=== PATIENT | female | born 1970 ===

== ENCOUNTER 2020-10-24 09:18 | Outpatient (REF) | payer OTHER, SELFPAY ==
[2020-10-24 10:25] LABS: Basophils Percent Auto 0.2 % (0-2); Eosinophils Absolute Auto 0.1 X10*3/uL (0.0-0.4); Eosinophils Percent Auto 1.4 % (0-4); Hematocrit 39.1 % (37-47); Hemoglobin 13.4 g/dl (12.0-16.0); Imm Gran Abs Auto 0.04 X10*3/uL (0.00-0.03); Imm Gran Pct Auto 0.5 % (0.0-0.4); Lymphocytes Absolute Auto 2.1 X10*3/uL (1.2-4.9); Lymphocytes Percent Auto 25.3 % (20-40); MANUAL DIFF FLAG SCAN; Mean Corpuscular HGB Conc 34.3 g/dl (31.0-35.0); Mean Corpuscular Volume 105.1 fL (80-98); Mean Platelet Volume 12.7 fL (9.4-12.3); Monocytes Absolute Auto 0.5 X10*3/uL (0.1-1.2); Monocytes Percent Auto 5.7 % (2-11); Neutrophils Absolute Auto 5.4 X10*3/uL (2.0-8.3); Neutrophils Percent Auto 66.9 % (45-73); PLT CLUMP 1; Red Blood Count 3.72 X10*6/uL (4.20-5.50); Red Cell Distribution Width 12.4 % (11.0-16.0); SCAN SMEAR FLAG 1
[2020-10-24 10:32] LABS: Cholesterol 136 mg/dL; Estimated Average Glucose 108 mg/dL; HDL Cholesterol 30 mg/dL; Hemoglobin A1c % 5.4 %; LDL Cholesterol Calculated 93 mg/dl; Triglycerides 67 mg/dL
[2020-10-24 10:34] LABS: Anion Gap 13 (12-20); Blood Urea Nitrogen 8 mg/dL (9-16); Calcium 9.3 mg/dL (8.4-10.2); Carbon Dioxide 24 mmol/L (22-29); Chloride 107 mmol/L (96-108); Estimated Glomerular Filt Rate > 60; Glucose Random 121 mg/dL (60-115); Potassium 3.9 mmol/l (3.3-5.1); Sodium 140 mmol/L (135-145)
[2020-10-24 10:48] LABS: White Blood Count 8.1 X10*3/uL (4.8-10.8)
[2020-10-24 10:49] LABS: Platelet Count 153 X10*3/uL (160-400); SLIDE REVIEW VERIFIED
[2020-10-24 11:09] LABS: Erythrocyte Sedimentation Rate 31 MM/HR (0-20)
== END 2020-10-24 09:19 | disposition home or self-care (01) ==
LOC: HO.LAB 09:18
PROVIDERS: Nurse Practitioner Family; PCP Physician Assistant; Visit Provider Internal Medicine
DX: Z00.00 Encounter for general adult medical examination without abnormal findings (principal); R51.9 Headache, unspecified; I10 Essential (primary) hypertension; M54.5 Low back pain
CPT/HCPCS: 36415; 80048; 80061; 83036; 85025; 85652

== ENCOUNTER 2020-11-01 10:48 | Outpatient (REF) | payer OTHER, SELFPAY ==
--- NOTE | 2020-11-01 10:50 | US_ITS ---
EXAMINATION: US ABDOMEN COMPLETE CLINICAL INFORMATION: Unspecified abdominal pain. COMPARISON: CT abdomen 05/30/2008. TECHNIQUE: Real-time imaging of the abdominal viscera. FINDINGS: PANCREAS: Normal. ABDOMINAL AORTA: The proximal, mid, and distal segments are normal in caliber. INFERIOR VENA CAVA: Visualized portions are normal. LIVER: There are small granulomas seen in left hepatic lobe. The liver is normal in size. The liver contour is normal. Parenchymal echogenicity is normal. No focal hepatic lesion. There is no intrahepatic biliary duct dilatation seen. GALLBLADDER: The gallbladder is physiologically distended. There is echogenic debris with multiple echogenic stones seen in the gallbladder. No evidence of gallbladder wall thickening or pericholecystic fluid. COMMON BILE DUCT: Normal in caliber measuring 0.7 cm in diameter. RIGHT KIDNEY: Normal. No hydronephrosis. No renal calculi or focal parenchymal lesions. The kidney measures 10.3 cm in maximum dimension. LEFT KIDNEY: Normal. No hydronephrosis. No renal calculi or focal parenchymal lesions. The kidney measures 11.8 cm in maximum dimension. SPLEEN: Normal. The spleen measures 11.2 cm in maximum dimension. FREE FLUID: None. US/US abdomen complete IMPRESSION: Echogenic debris with echogenic stones seen in gallbladder. Gallbladder wall thickening is 0.3 cm. A few echogenic granulomas in the left hepatic lobe. The liver is otherwise unremarkable. Few granulomatous calcifications are seen in the liver, spleen and pancreas on the previous CT abdomen exam 05/30/2008. Rest of the abdominal ultrasound is unremarkable.
== END 2020-11-01 10:49 | disposition home or self-care (01) ==
LOC: HO.HMGCX 10:48
PROVIDERS: PCP Physician Assistant; Visit Provider Internal Medicine
DX: R10.9 Unspecified abdominal pain (principal)
CPT/HCPCS: 76700

== ENCOUNTER → 2020-11-30 11:35 | Outpatient (BNVA) | payer OTHER, SELFPAY | PROVIDERS: PCP Physician Assistant; Visit Provider Surgery | DX: K80.64 Calculus of gallbladder and bile duct with chronic cholecystitis without obstruction (principal) | CPT/HCPCS: 99202 ==

== ENCOUNTER 2020-12-13 06:04 | Day surgery (SDC) | payer OTHER, SELFPAY ==
[2020-12-05 19:27] VITALS: BMI 28.5
--- NOTE | 2020-12-12 09:01 | HO.ANESPROP2 ---
Documented by User: Soco Ramos 12/12/20 09:08 HPI - Anesthesia Eval Consult details Narrative: 50yo F for Cholecystectomy Laparoscopic PMFSH Active Problems Active Problems: All Active Problems (Updated 12/05/20 @ 19:29 by Keerthi Ellis RN) Abdominal pain (Acute) Cholecystitis (Acute) Biliary colic (Acute) Gallstone (Acute) HTN (hypertension) (Acute) Chronic cholecystitis due to cholelithiasis with choledocholithiasis (Acute) Lower back pain (Acute) High blood pressure (Acute) Past Medical History Medical History Gallstones High blood pressure History of palpitations Lower back pain Numbness in left leg Sciatica Family History Family History Father Stroke Hypertension Mother Hypertension Sister Breast cancer Family/Other Alcoholism Surgical History Surgical History No pertinent past surgical history Social History Social History Smoking Status: Former smoker Smoking Quit Date: 2017 Second Hand Smoke Exposure: No Use of substances other than those prescribed or required for medical reasons: No Advance Directives: No Advance Directives Information Provided: No Advance Directives on File: No Meds Allergies Allergy/AdvReac Type Severity Reaction Status Date / Time No Known Allergies Allergy Verified 12/05/20 19:26 Home Medications Medication Instructions Recorded Confirmed Last Taken Type ibuprofen 800 mg tablet 800 mg PO TID PRN 08/10/20 12/05/20 Unknown History medroxyprogesterone 1 ml IM [id number] 09/18/20 12/05/20 Unknown History Exam Exam Date and Time: December 12, 2020 0901 Height,Weight and Vital Signs: Height 5 ft 4 in Weight 75.296 kg Pertinent Lab Results Pertinent Lab Results: Laboratory Tests 10/24/20 10/24/20 09:35 09:35 WBC 8.1 Hgb 13.4 Hct 39.1 Plt Count 153 L Sodium 140 Potassium 3.9 Chloride 107 Carbon Dioxide 24 BUN 8 L Creatinine 0.79 Narrative Narrative: EKG 05/2020 NSR @ 85 30 Day CHRIS 08/2020 CONCLUSION: 1. Cardiac event monitor unremarkable, baseline normal sinus rhythm with no significant arrhythmias. 2. No patient reported symptoms. Assessment and Plan Assessment Anesthesia Assessment: Chart Reviewed Documented by User: Bijan Cruz 12/13/20 07:19 PMF Past Medical History Medical History Gallstones High blood pressure History of palpitations Lower back pain Numbness in left leg Sciatica Family History Family History Father Stroke Hypertension Mother Hypertension Sister Breast cancer Family/Other Alcoholism Family history of problems with anesthesia: No Surgical History Surgical History No pertinent past surgical history History of Problems with Anesthesia: No Social History Social History Smoking Status: Former smoker Smoking Quit Date: 2017 Second Hand Smoke Exposure: No Use of substances other than those prescribed or required for medical reasons: No Advance Directives: No Advance Directives Information Provided: No Advance Directives on File: No Meds Allergies Allergy/AdvReac Type Severity Reaction Status Date / Time No Known Allergies Allergy Verified 12/05/20 19:26 Home Medications Medication Instructions Recorded Confirmed Last Taken Type ibuprofen 800 mg tablet 800 mg PO TID PRN 08/10/20 12/05/20 Unknown History medroxyprogesterone 1 ml IM [id number] 09/18/20 12/05/20 Unknown History Exam Airway Mallampati Class: I TM Dist: >3cm Neck ROM: Full Heart: ok Lungs: ok Assessment and Plan Assessment Anesthesia Assessment: Anesthesia Plan Discussed and Chart Reviewed Final Anesthetic Review NPO: Yes ASA Class: II Final Preanesthetic Review: No Changes in Pt Med Stat, Meds/Allgs Chart Reviewed, Consent Obtained/Reviewed and Anes Risks/Benef Reviewed Patient Risk: Intermediate Procedure Risk: Intermediate Anesthetic Plan Anesthetic Plan: GA and Agree w/ Assess. and Plan Disposition: Standard PACU
[2020-12-13] VITALS (13 sets, daily range): BP systolic 119–147; BP diastolic 71–83; PULSE 71–88; RESP 16; TEMP 36.1–36.6; O2SAT 96–100
[2020-12-13] MEDS: Acetaminophen 325 MG TABLET 650 MG PO (06:32)
[2020-12-13] MEDS: Lactated Ringers 1,000 ML 100 ML IVCONT (06:47)
--- NOTE | 2020-12-13 07:19 | MHC.SHP ---
Pre-Procedural Eval Section A The patient is an INPATIENT: No Changes since office visit: Yes Patient answered all questions; No Cold of Flu in the past 2 weeks, No New Medical Problems and No Changes in Medication The History & Physical has been completed within 30 days and I have reviewed it.: Yes Section B Chief Complaint: Chronic cholecystitis, Other cholelithiasis w/o ob Allergies: Allergies Allergy/AdvReac Type Severity Reaction Status Date / Time No Known Allergies Allergy Verified 12/05/20 19:26 Plan Diagnosis/Plan: Unchanged I have reviewed the history and physical and performed a pertinent physical examination on my patient. No changes have occurred unless specified.
--- NOTE | 2020-12-13 08:48 | P.OP_ITS ---
Operative Note Operative Note Date of Service: 12/13/20 Narrative: Preoperative diagnosis: Chronic cholecystitis, cholelithiasis Postoperative diagnosis: Same Procedure: Laparoscopic cholecystectomy Surgeon: Javi Canseco MD Museum Tour Guide: SILVIO West Anesthesia: General endotracheal Indications for procedure:50 year old male patient presenting with complaints of pain in the right upper quadrant, found to have gallstones in the gallbladder. Operative findings: Chronic changes in the gallbladder consistent with chronic cholecystitis Specimen: Gallbladder Estimated blood loss: 10 ml Complications: none Procedure details: Patient was brought to the OR and placed in a supine position. After administering general anesthesia the patient's abdomen was prepped with ChloraPrep and draped in a sterile fashion. Local anesthesia consisting of 0.75% Sensorcaine with epinephrine was infiltrated in a periumbilical region. A 5 mm incision was made above the umbilicus in a transverse fashion. The Veress needle was then inserted while elevating abdominal cavity with towel clips. After positive drop test the abdomen was insufflated to a pressure of 15 mm of mercury. The Veress needle was then removed and a 5 mm trocar inserted. The camera was inserted in the abdomen explored. A 12 mm trocar was then placed in the epigastrium and 2 5 mm trocars placed in the right upper quadrant. The patient was placed in reverse Trendelenburg positioning and rotated to the left. The gallbladder was grasped with the fundus and retracted cephalad.. The infundibulum Was then grasped and retracted away from the liver bed. The Dolphin dissected was then used to dissect the peritoneum off the infundibulum to reveal the junction with the cystic duct. Cystic artery was noted slightly medial and posterior to the cystic duct. After obtaining a critical view the cystic duct was doubly clipped and divided. The cystic artery was then doubly clipped and divided. The gallbladder was then dissected off the liver bed using electrocautery with an L hook. Hemostasis was assured all times using the electrocautery. When the gallbladder is completely dissected off the liver bed was placed in an Endo- Catch bag and brought out through the epigastric incision. The gallbladder was sent to pathology for further examination. The abdomen was then re-examined. The liver bed was irrigated and suctioned dry. No bleeding or bile leak could be identified. CO2 was then evacuated and all trocars removed. Fascia was closed at the epigastric incision using a [id number] 0 Polysorb suture. Skin was closed in all incisions using a subcuticular 4 0 Polysorb suture. Sterile dressings consisting of Steri-Strips, 2 x 2 gauze, and Tegaderm were then applied. The patient tolerated the procedure well. Sponge instrument and needle counts reported as correct. The patient was transferred to PACU in stable condition.
[2020-12-13] MEDS: ondansetron HCL 4 MG/2 ML VIAL IVPUSH (09:17)
[2020-12-13] MEDS: Ketorolac Tromethamine 15 MG/ML VIAL IVPUSH (09:51)
[2020-12-13] MEDS: oxyCODONE HCl Immed Release 5 MG TABLET PO (11:33)
== END 2020-12-13 12:41 | disposition home or self-care (01) ==
PROVIDERS: PCP Physician Assistant; Visit Provider Surgery
PROC: 0FT44ZZ Resection of Gallbladder, Percutaneous Endoscopic Approach (ICD-10-PCS; CPT 47562; principal; 2020-12-13 07:30)
DX: K80.10 Calculus of gallbladder with chronic cholecystitis without obstruction (principal); I10 Essential (primary) hypertension; Z79.899 Other long term (current) drug therapy; Z87.891 Personal history of nicotine dependence
CPT/HCPCS: 47562; 88304; J1100; J1885; J2250; J2405; J3010

== ENCOUNTER → 2020-12-21 09:37 | Outpatient (BNVA) | payer OTHER, SELFPAY | PROVIDERS: PCP Physician Assistant; Visit Provider Surgery | DX: K80.64 Calculus of gallbladder and bile duct with chronic cholecystitis without obstruction (principal) | CPT/HCPCS: 99212 ==

== ENCOUNTER 2021-01-21 09:43 | Outpatient (REF) | payer OTHER, SELFPAY ==
--- NOTE | ~2021-01-21 | MM_ITS ---
EXAMINATION: MM SCREENING DIGITAL BREAST TOMOSYNTHESIS, BILATERAL CLINICAL INFORMATION: Screening. Asymptomatic. The lifetime risk of breast cancer based on the Tyrer-Cuzick Model is 17.7%. COMPARISON: Mammography: January 14, 2020 and studies dating back to December 16, 2011 TECHNIQUE: Digital breast tomosynthesis is performed in both the craniocaudal and mediolateral oblique views along with computer-aided detection (CAD). Synthesized 2D images are generated from the tomosynthesis. FINDINGS: There are scattered areas of fibroglandular density (ACR BI-RADS breast composition Category b). There are no significant masses, abnormal calcifications, or other abnormalities. MM/MM tomosynthesis screening BI IMPRESSION: There are no significant changes from prior study. ASSESSMENT: BI-RADS 1: Negative RECOMMENDATION: Routine annual mammography screening. This patient's information was entered into a reminder system with a target due date for their next mammogram.
== END 2021-01-21 09:44 | disposition home or self-care (01) ==
LOC: HO.MAMMO 09:43
PROVIDERS: PCP Hospitalist; Visit Provider Hospitalist
DX: Z12.31 Encounter for screening mammogram for malignant neoplasm of breast (principal)
CPT/HCPCS: 77063; 77067

== ENCOUNTER 2021-06-03 12:50 | Outpatient (REF) | payer OTHER, SELFPAY ==
[2021-06-03 13:34] LABS: Glucose Urine UA NEG (NEG); Leukocyte Esterase Urine NEG (NEG); Nitrite Urine NEG (NEG); Specific Gravity - Urine 1.015 (1.005-1.025); Urine Blood NEG (NEG); Urine Ketones NEG (NEG); Urine Protein NEG (NEG-TRACE)
[2021-06-03 13:41] LABS: Appearance Urine CLEAR; Color Urine YELLOW
[2021-06-04 19:36] LABS: Follicle Stimulating Hormone 64.2 mIU/mL; Lutenizing Hormone 32.6 mIU/mL
[2021-06-09 21:17] LABS: Estrogen 68.3 pg/mL
[2021-06-13 21:11] LABS: Estradiol, Ultrasensitive 4 pg/mL
== END 2021-06-03 12:51 | disposition home or self-care (01) ==
LOC: HO.LAB 12:50
PROVIDERS: PCP Physician Assistant; Visit Provider Physician Assistant
DX: N95.1 Menopausal and female climacteric states (principal); R30.0 Dysuria
CPT/HCPCS: 36415; 81003; 82670; 82672; 82681; 83001; 83002

== ENCOUNTER → 2021-11-20 09:43 | Outpatient (BNVA) | payer OTHER, SELFPAY | PROVIDERS: PCP Physician Assistant; Referring Provider Physician Assistant; Visit Provider Nurse Practitioner Family | DX: Z12.11 Encounter for screening for malignant neoplasm of colon (principal) | CPT/HCPCS: 99212 ==

== ENCOUNTER 2022-04-02 11:13 | Outpatient (REF) | payer OTHER, SELFPAY ==
--- NOTE | ~2022-04-02 | MM_ITS ---
EXAMINATION: MM SCREENING DIGITAL BREAST TOMOSYNTHESIS, BILATERAL CLINICAL INFORMATION: Screening. Asymptomatic. The lifetime risk of breast cancer based on the Tyrer-Cuzick Model is 12%. COMPARISON: Mammography: January 21, 2021 and studies dating back to December 16, 2011 TECHNIQUE: Digital breast tomosynthesis is performed in both the craniocaudal and mediolateral oblique views along with computer-aided detection (CAD). Synthesized 2D images are generated from the tomosynthesis. FINDINGS: The breasts are almost entirely fatty (ACR BI-RADS breast composition Category a). There are no significant masses, abnormal calcifications, or other abnormalities. MM/MM tomosynthesis screening BI IMPRESSION: There are no significant changes from prior study. ASSESSMENT: BI-RADS 1: Negative RECOMMENDATION: Routine annual mammography screening. This patient's information was entered into a reminder system with a target due date for their next mammogram.
== END 2022-04-02 11:14 | disposition home or self-care (01) ==
LOC: HO.MAMMO 11:13
PROVIDERS: Visit Provider Physician Assistant
DX: Z12.31 Encounter for screening mammogram for malignant neoplasm of breast (principal)
CPT/HCPCS: 77063; 77067

== ENCOUNTER 2022-06-24 09:53 | Outpatient (REF) | payer OTHER, SELFPAY ==
--- NOTE | ~2022-06-24 | XR_ITS ---
EXAMINATION: XR KNEE, RIGHT XR KNEE, LEFT CLINICAL INFORMATION: Bilateral knee pain. COMPARISON: 03/14/2019 TECHNIQUE: 3 views of each knee. FINDINGS: LEFT KNEE: There is no evidence of acute fracture or dislocation of the left knee. No left knee joint effusion. Joint spaces are maintained. No destructive bony lesions identified. RIGHT KNEE: There is no evidence of acute fracture or dislocation of the right knee. Right knee joint spaces are maintained. No right knee effusion. XR/XR knee RT 3V IMPRESSION: No significant bony abnormality of the right or left knee.
--- NOTE | ~2022-06-24 | XR_ITS ---
EXAMINATION: XR CERVICAL SPINE CLINICAL INFORMATION: Cervicalgia. COMPARISON: None TECHNIQUE: 4 views of the cervical spine. FINDINGS: No abnormal prevertebral soft tissue swelling is seen. There is loss of the normal cervical spine lordosis. Disc spaces are maintained. No acute fracture is identified. There is mild spurring anteriorly of the L4 and L5 vertebral bodies. No destructive bony lesions identified. The head is tilted to the right. XR/XR cervical spine 3V IMPRESSION: Mild cervical spondylosis without fracture.
--- NOTE | ~2022-06-24 | XR_ITS ---
EXAMINATION: XR LUMBOSACRAL SPINE CLINICAL INFORMATION: Intervertebral disc disorder with radiculopathy. COMPARISON: 03/14/2019 TECHNIQUE: Three views of the lumbosacral spine. FINDINGS: There are 5 nonrib-bearing lumbar vertebrae. There is minimal scoliosis of the lumbar spine convex right superiorly and convex left inferiorly. No acute fracture, spondylolisthesis, or spondylolysis is appreciated. Multilevel degenerative spurring is present. There is some disc space narrowing seen T11 through L1. There is some increased density seen involving the L5-S1 facet joints bilaterally. No evidence of fusion or widening of the sacroiliac joints. XR/XR lumbar spine 2-3V IMPRESSION: Multilevel spondylosis from lower thoracic spine to sacrum without evidence of acute fracture, spondylolisthesis, or spondylolysis.
--- NOTE | ~2022-06-24 | XR_ITS ---
EXAMINATION: XR KNEE, RIGHT XR KNEE, LEFT CLINICAL INFORMATION: Bilateral knee pain. COMPARISON: 03/14/2019 TECHNIQUE: 3 views of each knee. FINDINGS: LEFT KNEE: There is no evidence of acute fracture or dislocation of the left knee. No left knee joint effusion. Joint spaces are maintained. No destructive bony lesions identified. RIGHT KNEE: There is no evidence of acute fracture or dislocation of the right knee. Right knee joint spaces are maintained. No right knee effusion. XR/XR knee LT 3V IMPRESSION: No significant bony abnormality of the right or left knee.
[2022-06-24 10:43] LABS: Hematocrit 40.8 % (37.0-47.0); Hemoglobin 14.4 g/dl (12.0-16.0); Mean Corpuscular HGB Conc 35.3 g/dl (31.0-35.0); Mean Corpuscular Hemoglobin 34.8 pg (27.0-33.0); Mean Corpuscular Volume 98.6 fL (80.0-98.0); Mean Platelet Volume 11.9 fL (9.4-12.3); Platelet Count 167 X10*3/uL (160-400); Red Blood Count 4.14 X10*6/uL (4.20-5.50); Red Cell Distribution Width 12.2 % (11.0-16.0); White Blood Count 7.3 X10*3/uL (4.8-10.8)
[2022-06-24 11:08] LABS: Creatinine Urine 95.04 mg/dL; Microalbum/Creatinine Ratio Ur 5.2 ug/mg cr
[2022-06-24 11:17] LABS: Alanine Aminotransferase 14 U/L (0-31); Albumin Level 4.6 g/dL (3.5-5.0); Alkaline Phosphatase 118 U/L (39-117); Anion Gap 16 (12-20); Aspartate Amino Transferase 15 U/L (5-31); Bilirubin Total 2.5 mg/dL (0.0-1.0); Blood Urea Nitrogen 10 mg/dL (9-16); Calcium 9.6 mg/dL (8.4-10.2); Carbon Dioxide 27 mmol/L (22-29); Chloride 103 mmol/L (96-108); Cholesterol 165 mg/dL; Estimated Glomerular Filt Rate > 60; Glucose Fasting 100 mg/dL (60-99); HDL Cholesterol 44 mg/dL; LDL Cholesterol Calculated 104 mg/dl; Rheumatoid Factor < 15.0 IU/mL (<15.0); Sodium 142 mmol/L (135-145); Total Protein 7.7 g/dL (6.5-8.0); Triglycerides 86 mg/dL
[2022-06-24 11:26] LABS: Erythrocyte Sedimentation Rate 16 MM/HR (0-20)
[2022-06-24 11:29] LABS: TSH reflex Free T4 3.63 uIU/mL (0.32-4.0)
[2022-06-26 22:47] LABS: Anti DNA DS Antibody <1 IU/mL
[2022-06-29 11:32] LABS: Anti Nuclear Antibody Screen NEGATIVE (NEGATIVE)
== END 2022-06-24 09:54 | disposition home or self-care (01) ==
LOC: HO.XRAY 09:53
PROVIDERS: PCP Physician Assistant; Visit Provider Physician Assistant
DX: I10 Essential (primary) hypertension (principal); M51.16 Intervertebral disc disorders with radiculopathy, lumbar region; M54.2 Cervicalgia; G89.29 Other chronic pain; M25.562 Pain in left knee; M25.561 Pain in right knee
CPT/HCPCS: 36415; 72040; 72100; 73562; 80053; 80061; 82043; 84443; 85027; 85652; 86038; 86039; 86225; 86431

== ENCOUNTER 2022-07-07 09:02 | Outpatient (REF) | payer OTHER, SELFPAY ==
--- NOTE | ~2022-07-07 | US_ITS ---
EXAMINATION: US ABDOMEN LIMITED CLINICAL INFORMATION: Unspecified jaundice. COMPARISON: Ultrasound abdomen complete 11/01/2020. TECHNIQUE: Real-time imaging of the right upper quadrant abdominal viscera. FINDINGS: PANCREAS: Normal. LIVER: There are known granulomas seen in right hepatic lobe. They measure 0.7 x 0.6 x 0.9 cm and 0.7 x 0.4 x 0.6 cm. The liver is normal in size. The liver contour is normal. Parenchymal echogenicity is normal. No focal hepatic lesion. There is no intrahepatic biliary duct dilatation seen. GALLBLADDER: Surgically absent. COMMON BILE DUCT: Normal in caliber measuring 0.6 cm in diameter. RIGHT KIDNEY: Normal. No hydronephrosis. No renal calculi or focal parenchymal lesions. The kidney measures 10.6 cm in maximum dimension. FREE FLUID: None. US/US abdomen limited IMPRESSION: Known granulomas in the liver measuring 0.7 x 0.6 x 0.9 cm and 0.7 x 0.4 x 0.6 cm.
== END 2022-07-07 09:03 | disposition home or self-care (01) ==
LOC: HO.US 09:02
PROVIDERS: Visit Provider Physician Assistant
DX: R17 Unspecified jaundice (principal)
CPT/HCPCS: 76705

== ENCOUNTER 2023-03-25 15:25 | Emergency (ER) | payer OTHER, SELFPAY ==
--- NOTE | ~2023-03-25 | XR_ITS ---
EXAMINATION: XR CHEST CLINICAL INFORMATION: SOB and palpitations. COMPARISON: Chest 01/02/2010 TECHNIQUE: 2 views of the chest were obtained. FINDINGS: No significant abnormality is noted involving the heart, lungs, mediastinum, bony thorax or soft tissues. XR/XR chest 2V IMPRESSION: Unremarkable chest examination.
[2023-03-25 15:28] VITALS: BP 132/82; PULSE 92; RESP 20; TEMP 36.8; O2SAT 100; BMI 26.8
--- NOTE | 2023-03-25 15:28 | ED.GENADULT ---
HPI - General Adult General Chief complaint: Chest Pain Stated complaint: Chest Pain/diff breathing Time Seen by Provider: 03/25/23 18:21 Source: patient, RN notes reviewed and old records reviewed Mode of arrival: ambulatory Limitations: no limitations History of Present Illness HPI narrative: 52-year-old female with past medical history significant for hypertension on lisinopril, hydrochlorothiazide presents for evaluation of palpitations Patient reports that while she was sitting down earlier she felt like her heart was racing She denies any exertion at the time She felt as though she could not catch her breath at the time She states that sitting down her symptoms resolved after about 30 minutes Patient reports that this happened once last week as well She also admits that she has a Holter monitor go 2 years ago but never followed up with her results She does not currently see cardiology Never had any chest pain with this and currently she has no symptoms This episode was over 6 hours prior to Related Data Previous Rx's Medication Instructions Recorded metronidazole 0.75 % topical gel 1 appl topical DAILY 15 days #45 06/10/21 grams tizanidine 2 mg tablet 2 mg PO BEDTIME 30 days #30 tabs 12/18/21 bisacodyl 5 mg tablet,delayed 10 mg PO ONCE 1 day #2 tabs 03/12/22 release (Dulcolax (bisacodyl)) gabapentin 600 mg tablet 600 mg PO BID 30 days #60 tabs 12/10/22 acetaminophen 650 mg 650 mg PO Q12H 30 days #60 tabs 02/08/23 tablet,extended release tramadol 50 mg tablet 50 mg PO BID PRN pain 7 days #14 02/10/23 tabs ibuprofen 800 mg tablet 800 mg PO TID PRN Pain 30 days #90 03/19/23 tabs lisinopril 20 1 tab PO DAILY 30 days #30 tabs 03/19/23 mg-hydrochlorothiazide 25 mg tablet Allergies Allergy/AdvReac Type Severity Reaction Status Date / Time No Known Allergies Allergy Verified 02/10/23 15:47 Review of Systems Constitutional: Constitutional: Reports as per HPI, Denies chills, Denies fatigue, Denies fever(s) and Denies headache(s) ENT: Denies headache(s) Cardiovascular: Cardiovascular: Denies chest pain, Reports rapid heart rate, Reports palpitations and Reports dyspnea Respiratory: Respiratory: Denies cough and Reports dyspnea Gastrointestinal: Gastrointestinal: Denies abdominal pain, Denies constipation and Denies vomiting Genitourinary: Genitourinary: Denies dysuria Neurologic: Denies headache(s) and Denies focal weakness Endocrine: Endocrine: Denies fatigue and Reports palpitations PMFSH Past Medical History Medical History Gallstones High blood pressure History of palpitations Lower back pain Numbness in left leg Sciatica Surgical History Hx of cholecystectomy No pertinent past surgical history Family History Family History Father Stroke Hypertension Mother Hypertension Sister Breast cancer, Onset Age: 45 Family/Other Alcoholism Social History Social History (Updated 02/10/23 @ 15:54 by Se Miguel PA-C) Housing: Apartment Are you a primary caregivers non medical to a significant other at home: No Do you presently have visiting nurse or other home services: No Alcohol intake: current Alcohol intake frequency: a few times a month Patient Tobacco Use Status: Never used Tobacco e-Cigarette/Vaping Use: Never Used Second Hand Smoke Exposure: No Advance Directives: No Advance Directives Information Provided: No service: No Current occupational status: unemployed Cognitive needs: No Hearing needs: No Vision needs: No Physical Exam ED Vital Signs: Vital Signs - 24 hr 03/25/23 15:28 Temperature 98.2 F Pulse Rate 92 Respiratory Rate 20 Blood Pressure 132/82 Pulse Oximetry 100 Oxygen Delivery Method Room Air BMI result Body Mass Index 26.8 Const General: healthy appearing, comfortable, no acute distress, alert and awake Nutritional Appearance: well nourished Orientation/consciousness: patient oriented x3 HENMT Head: Yes normocephalic and Yes atraumatic Eyes Eyelids: Yes eyelids normal Conjunctivae: conjunctivae normal Sclerae: sclerae normal Corneas: corneas normal Pupils: Equal, round and reactive pupils present EOM: EOMs intact bilaterally Neck Neck: Yes full ROM Resp Effort & Inspection: normal respiratory effort, able to speak in complete sentences, no audible wheezes and not labored Auscultation: clear to auscultation bilaterally Cardio Rate: regular rate Rhythm: regular rhythm Skin General skin exam: no rashes or lesions noted and elasticity normal Neuro General: patient oriented x3 Cranial nerves: Yes Equal, round and reactive pupils present and Yes Bilaterally intact EOM present Cognition (Neuro): normal cognition Extrem Other: Moving all extremities well without any obvious deformities Course Course Course Narrative: This is an RME: Additional HPI, ROS, PE not included below will be deferred to primary provider. This is a [id number]-female, with a past medical history of hypertension, with a complaint of episode of heart racing and shortness of breath which started today. Pt states that she was in her house and she suddenly developed the symptoms. Denies any chest pain or pressure but felt as though her heart was rapidly beating. She sat down and her symptoms resolved after 30 minutes. History of similar symptoms in the past however has never been worked up for this. Vital signs within limits Plan: EKG, chest xray, labs ordered. Medical Decision Making Medical Decision Making [facility] Narrative: 52-year-old female presents for evaluation of palpitations and shortness of breath. This resolved several hours prior to arrival. It is unclear if this was anxiety versus a true arrhythmia. The patient has no history of arrhythmias. Her EKG is normal sinus rhythm. Vital signs are currently stable and she is asymptomatic. Her lab work is reassuring, troponin negative, electrolytes are within normal limits. We will discharge the patient to follow up with Cardiology as she would likely benefit from a Holter monitor to capture this Differential Diagnosis Palpitations Anxiety Arrhythmia AFib SVT Lab Data [facility] Lab Attestation statement: I reviewed the patient's lab results. 03/25/23 15:45 03/25/23 15:45 Labs: Lab Results 03/25/23 03/25/23 03/25/23 Range/Units 15:45 15:45 15:45 WBC 10.7 (4.8-10.8) X10*3/uL RBC 3.75 L (4.20-5.50) X10*6/uL Hgb 12.8 (12.0-16.0) g/dl Hct 36.6 L (37.0-47.0) % MCV 97.6 (80.0-98.0) fL MCH 34.1 H (27.0-33.0) pg MCHC 35.0 (31.0-35.0) g/dl RDW 11.7 (11.0-16.0) % Plt Count 178 (160-400) X10*3/uL MPV 12.7 H (9.4-12.3) fL Immature Gran % (Auto) 0.2 (0.0-0.4) % Neut % (Auto) 68.1 (45-73) % Lymph % (Auto) 24.8 (20-40) % [place] % (Auto) 5.7 (2-11) % Eos % (Auto) 0.9 (0-4) % Baso % (Auto) 0.3 (0-2) % Lymph # (Auto) 2.6 (1.2-4.9) X10*3/uL [place] # (Auto) 0.6 (0.1-1.2) X10*3/uL Eos # (Auto) 0.1 (0.0-0.4) X10*3/uL Baso # (Auto) 0.0 (0.0-0.2) X10*3/uL Abs Immat Gran (auto) 0.02 (0.00-0.03) X10*3/uL Absolute Neuts (auto) 7.3 (2.0-8.3) x10*3/uL Absolute Nucleated RBC 0.000 (0.0-0.012) X10*3/uL Nucleated RBC % (auto) 0.0 (0.0-0.2) /100WBC Smear Tech's Comments VERIFIED Sodium 142 (135-145) mmol/L Potassium 3.7 (3.3-5.1) mmol/L Chloride 108 (96-108) mmol/L Carbon Dioxide 27 (22-29) mmol/L Anion Gap 11 L (12-20) BUN 16 (9-16) mg/dL Creatinine 0.87 (0.5-1.4) mg/dL Estim Creat Clear Calc 72.9 Estimated GFR > 60 Random Glucose 129 H (60-115) mg/dL Calcium 9.4 (8.4-10.2) mg/dL Magnesium 2.1 (1.6-2.6) mg/dL Total Bilirubin 1.7 H (0.0-1.0) mg/dL Direct Bilirubin 0.4 (0.0-0.5) mg/dL AST 15 (5-31) U/L ALT 12 (0-31) U/L Alkaline Phosphatase 106 (39-117) U/L Troponin I High Sens < 2.7 (<3.5-17.0) ng/L Total Protein 6.7 (6.5-8.0) g/dL Albumin 4.0 (3.5-5.0) g/dL Lipase 36 (8-78) U/L Independent Interpretation I performed an independent interpretation of an: EKG (Sinus rhythm with a rate of 89 beats per minute. No ischemia or ectopy) Discharge Plan Discharge Clinical Impression: Palpitations Patient Disposition: Home, Self-Care Instructions: Heart Palpitations (ED) Additional Instructions: It is unclear if you had a true arrhythmia or anxiety earlier as your symptoms resolved prior to arrival Your blood work, EKG were within normal limits Follow-up with cardiology as you likely need a Holter monitor to try to capture this episode Follow-up with your primary doctor Prescriptions: No Action tizanidine 2 mg tablet 2 mg PO BEDTIME 30 Days Qty: 30 3RF bisacodyl [Dulcolax (bisacodyl)] 5 mg tablet,delayed release (DR/EC) 10 mg PO ONCE 1 Days Qty: 2 0RF Rx Instructions: take 2 tabs at noon the day before your colonoscopy gabapentin 600 mg tablet 600 mg PO BID 30 Days Qty: 60 3RF acetaminophen 650 mg tablet extended release 650 mg PO Q12H 30 Days Qty: 60 2RF lisinopril-hydrochlorothiazide 20-25 mg tablet 1 tab PO DAILY 30 Days Qty: 30 2RF ibuprofen 800 mg tablet 800 mg PO TID PRN (Reason: Pain) 30 Days Qty: 90 1RF metronidazole 0.75 % gel 1 appl topical DAILY 15 Days Qty: 45 1RF tramadol 50 mg tablet 50 mg PO BID PRN (Reason: pain) 7 Days Qty: 14 0RF Referrals: Momo Navarro MD [Physician] - (? holter monitor for palpitations)
--- NOTE | 2023-03-25 15:31 | ECG_ITS ---
Test Reason : PALPITATIONS Blood Pressure : / mmHG Vent. Rate : 089 BPM Atrial Rate : 089 BPM P-R Int : 172 ms QRS Dur : 094 ms QT Int : 370 ms P-R-T Axes : 052 -08 055 degrees QTc Int : 450 ms Normal sinus rhythm Low voltage QRS Borderline ECG When compared with ECG of 02-JAN-2010 15:01, No significant change was found Referred By: Swapna Torres Electronically Signed By:TEGAN LANGSTON MD
[2023-03-25 15:58] LABS: Basophils Percent Auto 0.3 % (0-2); Red Cell Distribution Width 11.7 % (11.0-16.0); SCAN SMEAR FLAG 1
[2023-03-25 16:00] LABS: Eosinophils Absolute Auto 0.1 X10*3/uL (0.0-0.4); Eosinophils Percent Auto 0.9 % (0-4); Hematocrit 36.6 % (37.0-47.0); Hemoglobin 12.8 g/dl (12.0-16.0); Imm Gran Abs Auto 0.02 X10*3/uL (0.00-0.03); Imm Gran Pct Auto 0.2 % (0.0-0.4); Lymphocytes Absolute Auto 2.6 X10*3/uL (1.2-4.9); Lymphocytes Percent Auto 24.8 % (20-40); MANUAL DIFF FLAG SCAN; Mean Corpuscular Hemoglobin 34.1 pg (27.0-33.0); Mean Corpuscular Volume 97.6 fL (80.0-98.0); Mean Platelet Volume 12.7 fL (9.4-12.3); Monocytes Absolute Auto 0.6 X10*3/uL (0.1-1.2); Monocytes Percent Auto 5.7 % (2-11); Neutrophils Absolute Auto 7.3 x10*3/uL (2.0-8.3); Neutrophils Percent Auto 68.1 % (45-73); Platelet Count 178 X10*3/uL (160-400); Red Blood Count 3.75 X10*6/uL (4.20-5.50); White Blood Count 10.7 X10*3/uL (4.8-10.8)
[2023-03-25 16:08] LABS: PLT ABN DIST 1
[2023-03-25 16:09] LABS: Alanine Aminotransferase 12 U/L (0-31); Alkaline Phosphatase 106 U/L (39-117); Anion Gap 11 (12-20); Aspartate Amino Transferase 15 U/L (5-31); Bilirubin Direct 0.4 mg/dL (0.0-0.5); Bilirubin Total 1.7 mg/dL (0.0-1.0); Blood Urea Nitrogen 16 mg/dL (9-16); Calcium 9.4 mg/dL (8.4-10.2); Carbon Dioxide 27 mmol/L (22-29); Chloride 108 mmol/L (96-108); Creatinine Clr Calc Pharmacy 72.9; Estimated Glomerular Filt Rate > 60; Glucose Random 129 mg/dL (60-115); Lipase 36 U/L (8-78); Magnesium 2.1 mg/dL (1.6-2.6); Potassium 3.7 mmol/L (3.3-5.1); Sodium 142 mmol/L (135-145); Total Protein 6.7 g/dL (6.5-8.0)
[2023-03-25 16:15] LABS: SLIDE REVIEW VERIFIED
[2023-03-25 16:17] LABS: Troponin-I High Sensitivity < 2.7 ng/L (<3.5-17.0)
[2023-03-25 18:34] VITALS: BP 141/86; PULSE 76; RESP 16; O2SAT 98
== END 2023-03-25 18:44 | disposition home or self-care (01) ==
PROVIDERS: Physician Assistant Medical; Emergency Provider Student in an Organized Health Care Education/Training Program; PCP Physician Assistant
DX: R00.2 Palpitations (principal); R06.00 Dyspnea, unspecified; I10 Essential (primary) hypertension; Z79.899 Other long term (current) drug therapy
CPT/HCPCS: 36415; 71046; 80048; 80076; 83690; 83735; 84484; 85025; 93005; 99283; 99285

== ENCOUNTER 2023-11-02 14:22 | Outpatient (AMB) | payer OTHER, SELFPAY ==
[2023-11-02 15:44] VITALS: BP 100/76; PULSE 72; RESP 17; BMI 23.3
--- NOTE | 2023-11-02 15:44 | A.OFFPC_ITS ---
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 Accompanied by: Self / Same As Patient Allergies No Known Allergies Allergy (Verified 11/02/23 16:17) Medication List - Last Reconciled 11/02/23 by Se Miguel PA-C acetaminophen ER 650 mg PO Q12H 30 days gabapentin 600 mg PO BID 30 days ibuprofen 800 mg PO TID PRN 30 days lisinopril-hydrochlorothiazide 20-25 mg 1 tab PO DAILY tramadol 50 mg PO BID PRN 7 days Tobacco use date assessed: 11/02/23 Dental Screening Dental Screen Date: 11/02/23 Did you have a dental visit in the last 12 months?: Yes Did you have a dental problem in the last 6 months where you did not have access to dental care?: No Was dental information given to patient?: Patient has dentist HPI f/u HTN HPI Details Patient is a 53-year-old female here today for follow-up visit? Patient has a past medical history significant for hypertension. ?Lumbar spine pain:? Patient continues to lumbar spine pain and has had history of sciatica down left lower extremity.? She has gotten lumbar x-rays in 2021 which did not show any osteoarthritic deformities.? She does report getting cortisone injections in her lumbar spine in the past at had helped temporarily. She denies ever having physical therapy for her lumbar spine pain.? Currently using gabapentin 800 mg T.i.d. for her pain with minimal affect. As seen mixer wet pour in the past and all rheumatology testing was essentially normal.? X-rays knees and back were normal. ?? Fibromyalgia .. Hypertension:? Blood pressure has been stable. Has lost a significant amount of weight since last office visit intentionally. Blood pressure slightly on the lower side today in office. Will reduce her dose of hydrochlorothiazide to reduce incidence of hypotension. She does not check her blood pressure at home.? Otherwise denies any chest discomfort, headaches, shortness of breath. ? PFSH Medical History Numbness in left leg Sciatica Gallstones History of palpitations Lower back pain High blood pressure Surgical History Hx of cholecystectomy No pertinent past surgical history Family History Father Stroke Hypertension Mother Hypertension Sister Breast cancer, Onset Age: 45 Family/Other Alcoholism Social History Housing: Apartment Are you a primary professional healthcare representative to a significant other at home: No Do you presently have visiting nurse or other home services: No Alcohol intake: current Alcohol intake frequency: holidays/special occasions only Patient Tobacco Use Status: Never used Tobacco e-Cigarette/Vaping Use: Never Used Second Hand Smoke Exposure: No service: No Current occupational status: unemployed Cognitive needs: No Hearing needs: No Vision needs: No Questionnaire PHQ-9 Over the last 2 weeks, how often have you been bothered by any of the following problems? 1. Little interest or pleasure in doing things: not at all 2. Feeling down, depressed, or hopeless: not at all 3. Trouble falling or staying asleep, or sleeping too much: not at all 4. Feeling tired or having little energy: not at all 5. Poor appetite or overeating: not at all 6. Feeling bad about yourself - or that you are a failure or have let yourself or your family down: not at all 7. Trouble concentrating on things, such as reading the newspaper or watching television: not at all 8. Moving or speaking so slowly that other people could have noticed. Or the opposite - being so fidgety or restless that you have been moving around a lot more than usual: not at all 9. Thoughts that you would be better off or of hurting yourself in some way: not at all Total score: 0 Depression Screening Interpretation: Negative Depression Screening Done: Yes 03094 - PHQ-9 Billing: Yes Source: Developed by Drs. Julien Pruitt, Marina Rene, Jovan Perez and colleagues, with an educational good from [employer]. Thrive Questionnaire Date Thrive assessed: 11/02/23 I am a: Patient What is your living situation today?: I have a steady place to live Within the past 12 months, did the food you bought not last and you didn't have the money to get more?: Never true Within the past 12 months, did you worry whether your food would run out before you got money to buy more?: Never true Do you have trouble paying for medicines?: No Do you have trouble getting transportation to medical appointments?: No Do you have trouble paying your heating and electricity bill?: No Do you have trouble taking care of your child, family member or friend?: No Do you have trouble with day-to-day activities such as bathing, preparing meals, shopping, managing finances, etc.?: No Are you currently unemployed and looking for a job?: No Are you interested in more education?: No Please select the resources that you would like help with: None Currently or been in a relationship where the following occur: no concerns reported AUDIT C Alcohol Use Questionnaire (AUDIT-C) 1. How often do you have a drink containing alcohol?: 2-4 times a month 2. How many drinks containing alcohol do you have on a typical day when you are drinking?: 1 or 2 3. How often do you have six or more drinks on one occasion?: Never Total Score: 2 MARIA VICTORIA-7 AMB Questionnaire MARIA VICTORIA-7 Date MARIA VICTORIA - 7 assessed: 11/02/23 Feeling nervous, anxious, or on edge: 0 = Not at all Not being able to stop or control worryin = Not at all Worrying too much about different things: 0 = Not at all Trouble relaxin = Not at all Being so restless that it is hard to sit still: 0 = Not at all Becoming easily annoyed or irritable: 0 = Not at all Feeling afraid as if something awful might happen: 0 = Not at all Total MARIA VICTORIA-7 score (0-4 normal; 5-9 mild; 10-14 moderate; 15-21 severe): 0 Source: Developed by Drs. Julien Pruitt, Marina Rene, Jovan Perez and colleagues, with an educational good from [employer]. MARIA VICTORIA-7 Assessment Billing MARIA VICTORIA-7 Assessment Tool: MARIA VICTORIA-7 Assessment 77440 Review of Systems Const Denies headache(s) Eyes Denies loss of vision ENT Denies vertigo, Denies dizziness, Denies headache(s) and Denies sore throat Card Denies chest pain, Denies leg edema and Denies lightheadedness Resp Denies cough, Denies hemoptysis and Denies wheezing GI Denies abdominal pain, Denies melena, Denies constipation, Denies diarrhea and Denies vomiting Denies urinary frequency, Denies dysuria and Denies urinary urgency Musc Details: + knee pain Reports back pain, Reports arthralgias, Denies joint swelling, Denies numbness and Denies tingling Neuro Denies Abnormal speech present, Denies behavioral changes, Denies vertigo, Denies dizziness, Denies headache(s), Denies loss of vision, Denies memory loss, Denies numbness and Denies tingling Psych Denies anxiety, Denies behavioral changes, Denies depression, Denies memory loss and Denies panic attacks [place]/Lymph Denies easy bleeding and Denies easy bruising Aller/Immun Denies wheezing Physical exam (Primary Care) Vital Signs: Last Vital Signs Pulse 72 11/02/23 15:44 Resp 17 11/02/23 15:44 BP 100/76 11/02/23 15:44 BMI result Body Mass Index 23.3 Tobacco/Smoking Status: Tobacco use Status Tobacco use date assessed 11/02/23 11/02/23 15:54 Patient Tobacco Use Status Never used Tobacco 11/02/23 15:44 e-Cigarette/Vaping Use Never Used 11/02/23 15:44 PHQ-9: PHQ-9 Score PHQ-9: Total score 0 11/02/23 16:20 Depression Screening Interpretation: Negative Thrive Assessment: Date of Thrive Assessment Date Thrive assessed 11/02/23 11/02/23 15:54 Currently or been in a relationship where the following occur: no concerns reported Const General: healthy appearing, no acute distress, alert and awake Nutritional Appearance: well nourished Orientation/consciousness: oriented to person, oriented to place and oriented to time HENMT Ears: TM's normal bilaterally General nose exam: Normal nasal mucous membranes and turbinates present Eyes Conjunctivae: conjunctivae normal Sclerae: sclerae normal Pupils: Equal, round and reactive pupils present Neck Neck: Yes no lymphadenopathy and Yes no JVD Thyroid: Thyroid normal Carotids: no bruits Resp Effort & Inspection: normal respiratory effort and not tachypneic Auscultation: no crackles, no rales, no rhonchi and no wheezes Cardio Rate: regular rate Rhythm: regular rhythm Heart sounds: no murmurs and normal S1 and S2 GI Palpation (GI): Soft to palpation, nontender, no hepatomegaly and no splenomegaly Auscultation: normal bowel sounds Skin General skin exam: no rashes or lesions noted and dry skin Neuro General: oriented to person, oriented to place and oriented to time Cranial nerves: Yes Equal, round and reactive pupils present Speech: No Abnormal speech present Gait exam (Neuro): Normal gait present Motor exam (neuro): no tremor noted Extrem Right upper extremity: full ROM Left upper extremity: full ROM Right lower extremity: full ROM; no edema Left lower extremity: full ROM; no edema Psych Mental Status: mental status grossly normal Speech and movement: Normal speech and movement present Affect: normal affect Attitude: cooperative Thought process: Normal thought process present Office Procedures Flu Questionnaire Does the patient have a severe egg allergy?: No Does the patient have severe life threatening allergies?: No Does the patient have a fever or illness today?: No Has the patient ever had Guillain-[place] Syndrome?: No Has the patient ever had any past reaction to a flu shot?: No Immunizations flu vacc [id number] 6mos up(PF) 60 mcg(15 mcgx4)/0.5 mL IM syringe Performing Provider: Se Miguel PA-C Performing Location: [facility] Administered by: DUSTIN Martinez on 11/02/23 15:59 Dose Route Admin Location Dispensed Lot Number Expiration Date NDC [employer] In[employer] 0.5 mL IM Left Deltoid 0.5 mL [id number] 04/24/24 [id number] Ygle VIS Given Date VIS Provided VIS Publication Date 11/02/23 Single Vaccine 21 Eligibility Eligibility Date Funding Source Not [facility] Eligible 11/02/23 Private Assessment and Plan Assessment & Plan (1) HTN (hypertension): Code(s): I10 - Essential (primary) hypertension Qualifiers: Hypertension type: primary hypertension Qualified Code(s): I10 - Essential (primary) hypertension Plan: Patient's blood pressure slightly low today's office. Has lost 20 lb since last office visit. She reports this weight loss was intentional. Will reduce her dose of hydrochlorothiazide. Goal blood pressures to be below 140/90 and above 100/60. (2) Lumbar disc disease with radiculopathy: Code(s): M51.16 - Intervertebral disc disorders with radiculopathy, lumbar region Plan: Patient is a chronic history lower lumbar spine pain which hinders her a bit to do her ADLs. Again as HPI patient has gotten cortisone injections in the past with minimal relief. Also continues to use ibuprofen, gabapentin, Tylenol with minimal relief. Will supply patient with short-term script for tramadol to use for pain scales of 8-10 . She is interested in establishing care with a chronic pain management for other pain reduction modalities. (3) Colon cancer screening: Code(s): Z12.11 - Encounter for screening for malignant neoplasm of colon Plan: Now willing to do colonoscopy procedure (4) Fibromyalgia: Code(s): M79.7 - Fibromyalgia Plan: Patient's signs symptoms of global lysed pain most consistent with fibromyalgia. X-rays of particular joints without evidence osteoarthritis. She reports gabapentin, ibuprofen, tramadol have been affective. She is interested in seeing pain management to discuss pain reduction modalities. Orders: Orders Influenza [id number] Immunization 11/02/23 Z23 - Encounter for immunization Referrals Gastroenterology Referral Z12.11 - Encounter for screening for malignant neoplasm of colon Pain Management Referral M51.16 - Intervertebral disc disorders with radiculopathy, lumbar region Medications: New lisinopril-hydrochlorothiazide 20-12.5 mg 1 tab PO DAILY 90 days 90 tabs 1RF I10 - Essential (primary) hypertension Refilled tramadol 50 mg PO BID 7 days PRN 14 tabs 0RF pain M51.16 - Intervertebral disc disorders with radiculopathy, lumbar region Discontinued lisinopril-hydrochlorothiazide 20-25 mg Discontinued Reason: Doctor's Order 1 tab PO DAILY 90 tabs 1RF I10 - Essential (primary) hypertension Coding Level of Care Code Est Pt Level 4 (56952) Diagnoses Primary hypertension I10 Hypertension type: primary hypertension Lumbar disc disease with radiculopathy M51.16 Colon cancer screening Z12.11 Fibromyalgia M79.7 Additional Codes MARIA VICTORIA-7 Assessment Billing - MARIA VICTORIA-7 Assessment Tool: MARIA VICTORIA-7 Assessment 90029 ([id number])
== END 2023-11-02 16:32 | disposition home or self-care (01) ==
PROVIDERS: PCP Physician Assistant; Visit Provider Physician Assistant
DX: Z23 Encounter for immunization (principal)
CPT/HCPCS: 90471; 90686; 99214

== ENCOUNTER 2023-11-04 09:20 | Outpatient (REF) | payer OTHER, SELFPAY ==
--- NOTE | ~2023-11-04 | MM_ITS ---
EXAMINATION: MM SCREENING DIGITAL BREAST TOMOSYNTHESIS, BILATERAL CLINICAL INFORMATION: Screening. Asymptomatic. COMPARISON: Mammography: This study is compared with prior exams dating back to 2018. TECHNIQUE: Digital breast tomosynthesis is performed in both the craniocaudal and mediolateral oblique views along with computer-aided detection (CAD). Synthesized 2D images are generated from the tomosynthesis. FINDINGS: There are scattered areas of fibroglandular density (ACR BI-RADS breast composition Category b). There are faint calcifications in the upper outer quadrant of the left breast from prior benign percutaneous biopsy. In the right breast, there are no significant masses, abnormal calcifications, or other abnormalities. MM/MM tomosynthesis screening BI IMPRESSION: Faint calcifications in the left breast warrants additional mammographic imaging with magnification. No mammographic signs of malignancy right breast. ASSESSMENT: BI-RADS BI-RADS 0 - Incomplete: Needs additional Imaging. RECOMMENDATION: Additional views of the left breast. Radiology department staff will contact the patient for additional imaging. Additional Imaging required This examination should not preclude the clinical evaluation of a suspicious palpable abnormality. This patient's information was entered into a reminder system with a target due date for their next mammogram.
== END 2023-11-04 09:21 | disposition home or self-care (01) ==
LOC: HO.MAMMO 09:20
PROVIDERS: PCP Physician Assistant; Visit Provider Physician Assistant
DX: Z12.31 Encounter for screening mammogram for malignant neoplasm of breast (principal)
CPT/HCPCS: 77063; 77067

== ENCOUNTER → 2023-11-04 10:00 | Outpatient (BNV) | payer OTHER, SELFPAY | PROVIDERS: PCP Physician Assistant; Visit Provider Radiology Diagnostic Radiology | DX: Z12.31 Encounter for screening mammogram for malignant neoplasm of breast (principal) | CPT/HCPCS: 77063; 77067 ==

== ENCOUNTER 2023-11-25 09:18 | Outpatient (REF) | payer OTHER, SELFPAY ==
--- NOTE | ~2023-11-25 | MM_ITS ---
EXAMINATION: MM DIAGNOSTIC DIGITAL MAMMOGRAPHY, LEFT CLINICAL INFORMATION: Follow-up faint calcifications approximate 12:00 axis left breast, posterior one third, seen on recent screening exam 11/04/2023. COMPARISON: Mammography: 11/04/2023, 04/02/2022, 01/21/2021, 01/14/2020, and dating back to 2018. TECHNIQUE: Digital mammography is performed in the following views: 2-D spot magnification views in the left CC projection, left CC rolled medial, and left mediolateral x2. FINDINGS: There are scattered areas of fibroglandular density (ACR BI-RADS breast composition Category b). Extremely faint calcifications are evident in the 12:00 axis of the left breast, posterior one third, which on the rolled medial spot magnification view all of a vascular appearance, although some are so faint it is difficult to tell. On the left ML spot which included the 12:00 axis, linear calcifications are seen possibly partially vascular, and possibly partially parenchymal. In comparison with 2021 studies, the overall appearance to the nonmagnified 11/04/2023 views is the same with subtle calcifications seen in these regions. These are likely stable and unchanged. Given the constellation of findings, findings are most likely benign in nature, and 6 month follow-up diagnostic left breast mammography to include standard magnification views recommended to ensure stability. MM/MM added views LT IMPRESSION: Probably benign calcifications left breast 12:00 axis as detailed. Six-month interval follow-up recommended as detailed above. ASSESSMENT: BI-RADS BI-RADS 3 - Probably benign finding(s) - 12 month follow-up suggested RECOMMENDATION: 6 Month F/U This patient's information was entered into a reminder system with a target due date for their next mammogram.
[2023-11-25 10:32] LABS: Hematocrit 41.1 % (37.0-47.0); Hemoglobin 14.1 g/dl (12.0-16.0); Mean Corpuscular HGB Conc 34.3 g/dl (31.0-35.0); Mean Corpuscular Hemoglobin 33.8 pg (27.0-33.0); Mean Corpuscular Volume 98.6 fL (80.0-98.0); Mean Platelet Volume 12.4 fL (9.4-12.3); Platelet Count 174 X10*3/uL (160-400); Red Blood Count 4.17 X10*6/uL (4.20-5.50); Red Cell Distribution Width 11.9 % (11.0-16.0); White Blood Count 8.1 X10*3/uL (4.8-10.8)
[2023-11-25 11:08] LABS: Alanine Aminotransferase 13 U/L (0-31); Albumin Level 4.4 g/dL (3.5-5.0); Alkaline Phosphatase 92 U/L (39-117); Anion Gap 14 (12-20); Aspartate Amino Transferase 16 U/L (5-31); Bilirubin Total 1.6 mg/dL (0.0-1.0); Blood Urea Nitrogen 14 mg/dL (9-16); Calcium 9.8 mg/dL (8.4-10.2); Carbon Dioxide 24 mmol/L (22-29); Chloride 108 mmol/L (96-108); Cholesterol 148 mg/dL (<200); Estimated Glomerular Filt Rate > 60; Glucose Fasting 106 mg/dL (60-99); HDL Cholesterol 41 mg/dL (>40); LDL Cholesterol Calculated 97 mg/dL (<100); Potassium 4.2 mmol/L (3.3-5.1); Sodium 142 mmol/L (135-145); Total Protein 7.7 g/dL (6.5-8.0); Triglycerides 50 mg/dL (<150)
[2023-11-25 13:20] LABS: Microalbum/Creatinine Ratio Ur 17.5 ug/mg cr (<30)
[2023-11-26 13:33] LABS: Anti DNA DS Antibody <1 IU/mL
== END 2023-11-25 09:19 | disposition home or self-care (01) ==
LOC: HO.LAB 09:18
PROVIDERS: PCP Physician Assistant; Visit Provider Physician Assistant
DX: M51.16 Intervertebral disc disorders with radiculopathy, lumbar region (principal); R21 Rash and other nonspecific skin eruption; I10 Essential (primary) hypertension; R92.1 Mammographic calcification found on diagnostic imaging of breast
CPT/HCPCS: 36415; 77065; 80053; 80061; 82043; 82570; 85027; 86225

== ENCOUNTER 2023-11-25 10:12 | Outpatient (REF) | payer OTHER, SELFPAY | END 2023-11-25 10:13 | disposition home or self-care (01) | LOC: HO.MAMMO 10:12 | PROVIDERS: PCP Physician Assistant; Visit Provider Physician Assistant | DX: Z13.89 Encounter for screening for other disorder (principal) ==

== ENCOUNTER → 2023-11-25 10:30 | Outpatient (BNV) | payer OTHER, SELFPAY | PROVIDERS: PCP Physician Assistant; Visit Provider Radiology Diagnostic Radiology | DX: R92.8 Other abnormal and inconclusive findings on diagnostic imaging of breast (principal) | CPT/HCPCS: 77065 ==

== ENCOUNTER 2024-01-29 11:41 | Outpatient (REF) | payer OTHER, SELFPAY ==
--- NOTE | ~2024-01-29 | XR_ITS ---
EXAMINATION: XR CHEST CLINICAL INFORMATION: Chest pain. COMPARISON: March 25, 2023. TECHNIQUE: 2 views of the chest were obtained. FINDINGS: No significant abnormality is noted involving the heart, lungs, mediastinum, or soft tissues. Mild thoracic dextrocurvature. Status post cholecystectomy. XR/XR chest 2V IMPRESSION: No acute finding.
== END 2024-01-29 11:42 | disposition home or self-care (01) ==
LOC: HO.XRAY 11:41
PROVIDERS: PCP Physician Assistant; Visit Provider Physician Assistant
DX: R07.9 Chest pain, unspecified (principal)
CPT/HCPCS: 71046

== ENCOUNTER 2024-05-05 08:54 | Outpatient (REF) | payer OTHER, SELFPAY ==
--- NOTE | ~2024-05-05 | MM_ITS ---
EXAMINATION: MM DIAGNOSTIC DIGITAL MAMMOGRAPHY, LEFT CLINICAL INFORMATION: 6 month follow up faint calcifications approximate 2:00 axis left breast, posterior one third. COMPARISON: Mammography: 11/25/2023, 11/04/2023 (BI-RADS 0), 04/02/2022, 01/21/2021, 01/14/2020, and dating back to 2018. TECHNIQUE: Digital mammography is performed the following views: 2-D spot magnification left CC, left CC rolled medial, and left mediolateral views. FINDINGS: There are scattered areas of fibroglandular density (ACR BI-RADS breast composition Category b). Extremely faint calcifications are again seen in the 2:00 axis of the left breast, mid to posterior one third, which on the rolled medial spot magnification view have a possible vascular appearance, although some are so faint it is difficult to ascertain. On the left ML spot which included the 2:00 axis, linear calcifications are seen possibly partially vascular, and possibly partially parenchymal. The calcifications have remained unchanged with stable morphology and stable in number. No aggressive changes evident. No new abnormalities noted in the left breast. Results discussed with the patient by the technologist. MM/MM diagnostic mammo unilat LT IMPRESSION: -There are no significant changes from prior study. No findings suspicious for malignancy. -Stable probably benign calcifications in the 2:00 axis of the left breast, for which six-month follow-up (standard magnification views with rolled medial CC magnification view) is recommended when the patient is due for bilateral screening. ASSESSMENT: BI-RADS BI-RADS 3 - Probably benign finding(s) - 6 month follow-up suggested RECOMMENDATION: 6 Month F/U This patient's information was entered into a reminder system with a target due date for their next mammogram.
== END 2024-05-05 08:55 | disposition home or self-care (01) ==
LOC: HO.MAMMO 08:54
PROVIDERS: PCP Physician Assistant; Visit Provider Physician Assistant
DX: R92.1 Mammographic calcification found on diagnostic imaging of breast (principal)
CPT/HCPCS: 77062; 77065

== ENCOUNTER → 2024-05-05 09:00 | Outpatient (BNV) | payer OTHER, SELFPAY | PROVIDERS: PCP Physician Assistant; Visit Provider Radiology Diagnostic Radiology | DX: R92.1 Mammographic calcification found on diagnostic imaging of breast (principal) | CPT/HCPCS: 77065 ==

== ENCOUNTER 2024-05-10 11:33 | Outpatient (AMB) | payer OTHER, SELFPAY ==
--- NOTE | 2024-05-10 11:42 | MHC.PC.OV ---
Vital Signs 05/10/24 11:45 Height 5 ft 4 in Weight 142 lb 8 oz BMI 24.5 BP 124/80 Blood Pressure Location Lt brachial Position Sitting Pulse 80 Pulse Source Pulse Oximeter Pulse Oximetry (%) 99 Oxygen Delivery Method Room Air Intake Visit Reasons: Annual Exam Intake Note: Patient is here today for a physical. Pipe Inspector Required: No Accompanied by: Self / Same As Patient Allergies No Known Allergies Allergy (Verified 05/10/24 11:56) Medication List - Last Reconciled 05/10/24 by Se Miguel PA-C acetaminophen ER 650 mg PO Q12H 30 days gabapentin 600 mg PO BID 30 days ibuprofen 800 mg PO TID PRN 30 days lisinopril-hydrochlorothiazide 20-12.5 mg 1 tab PO DAILY 90 days tizanidine 2 mg PO Q8H PRN 7 days tramadol 50 mg PO BID PRN 7 days Tobacco use date assessed: 11/02/23 Dental Screening Dental Screen Date: 11/02/23 HPI Annual Exam HPI Details Patient is a 53-year-old female here today for follow-up visit? Patient has a past medical history significant for hypertension. ?Lumbar spine pain:? Patient continues to lumbar spine pain and has had history of sciatica down left lower extremity.? She has gotten lumbar x-rays in 2021 which did not show any osteoarthritic deformities.? She does report getting cortisone injections in her lumbar spine in the past at had helped temporarily. She denies ever having physical therapy for her lumbar spine pain.? Currently using gabapentin 800 mg T.i.d. for her pain with minimal affect. As seen glycerin supervisor in the past and all rheumatology testing was essentially normal.? X-rays knees and back were normal. ?? Fibromyalgia .. Hypertension:? Blood pressure has been stable. She does not check her blood pressure at home.? Otherwise denies any chest discomfort, headaches, shortness of breath. Colon cancer screening: willing to do colonosocpy. mammmo: 04/2024- BIRADS 3 - 6 month follow up PM HEAD COOK: Needs PAP- [facility] Vaccines up-to-date COVID vaccine, tetanus vaccine, considering shingles vaccine? Laboratory Tests 03/25/23 11/25/23 15:45 10:04 Hgb 12.8 Creatinine 0.87 Fasting Glucose 106 H Cholesterol 148 Double Strand DNA Ab <1 [facility] Medical History Numbness in left leg Sciatica Gallstones History of palpitations Lower back pain High blood pressure Surgical History Hx of cholecystectomy No pertinent past surgical history Family History Father Stroke Hypertension Mother Hypertension Sister Breast cancer, Onset Age: 45 Family/Other Alcoholism Social History (Updated 05/10/24 @ 11:56 by Se Miguel PA-C) Housing: Apartment Are you a primary direct care worker to a significant other at home: No Do you presently have visiting nurse or other home services: No Alcohol intake: current Alcohol intake frequency: a few times a month Patient Tobacco Use Status: Never used Tobacco e-Cigarette/Vaping Use: Never Used Second Hand Smoke Exposure: No service: No Current occupational status: unemployed Cognitive needs: No Hearing needs: No Vision needs: No Questionnaire Thrive Questionnaire Date Thrive assessed: 11/02/23 MARIA VICTORIA-7 AMB Questionnaire MARIA VICTORIA-7 Date MARIA VICTORIA - 7 assessed: 11/02/23 Source: Developed by Drs. Julien Pruitt, Marina Rene, Jovan Perez and colleagues, with an educational good from [employer]. Review of Systems Const Denies body aches, Denies chills, Denies excessive sweating, Denies fatigue, Denies fever(s) and Denies headache(s) Eyes Denies blurry vision ENT Denies dysphagia, Denies vertigo, Denies dizziness, Denies headache(s), Denies hearing loss and Denies tinnitus Card Denies chest pain, Denies chest pain with activity, Denies syncope, Denies irregular heart rhythm and Denies dyspnea Resp Denies chest congestion, Denies cough, Denies hemoptysis, Denies dyspnea and Denies wheezing GI Denies abdominal pain, Denies melena, Denies hematochezia, Denies coffee ground emesis, Denies dysphagia, Denies diarrhea, Denies nausea and Denies vomiting Denies urinary frequency, Denies dysuria, Denies urinary hesitancy and Denies urinary urgency Musc Denies arthralgias, Denies limited range of motion, Denies muscle cramps and Denies muscle weakness Skin/Breast Denies rash and Denies skin ulcer Neuro Denies Abnormal speech present, Denies confusion, Denies vertigo, Denies dizziness, Denies syncope, Denies headache(s), Denies memory loss and Denies seizure-like activity Psych Denies anxiety, Denies confusion, Denies depression, Denies memory loss, Denies panic attacks and Denies paranoia Endo Denies excessive sweating, Denies fatigue, Denies flushing, Denies polydipsia and Denies polyuria Aller/Immun Denies wheezing Physical exam (Primary Care) Vital Signs: Last Vital Signs Pulse 80 05/10/24 11:45 BP 124/80 05/10/24 11:45 Pulse Ox 99 05/10/24 11:45 Oxygen Delivery Method Room Air 05/10/24 11:45 BMI result Body Mass Index 24.5 Tobacco/Smoking Status: Tobacco use Status Tobacco use date assessed 11/02/23 05/10/24 11:42 Patient Tobacco Use Status Never used Tobacco 05/10/24 11:42 e-Cigarette/Vaping Use Never Used 05/10/24 11:42 Thrive Assessment: Date of Thrive Assessment Date Thrive assessed 11/02/23 05/10/24 11:42 Const General: cooperative, comfortable, no acute distress, alert and awake; No confusion Orientation/consciousness: oriented to person, oriented to place, patient oriented x3 and No confusion HENMT Head: Yes normocephalic Ears: external ears normal and TM's normal bilaterally Face and sinus: No sinus tenderness Mouth: Normal oral and palatal mucosa present and tongue normal Teeth and gingiva: dentition normal and gingiva normal Throat: Yes posterior oropharynx normal, Yes tonsils normal and Yes uvula midline Eyes Conjunctivae: conjunctivae normal Sclerae: sclerae normal Pupils: Equal, round and reactive pupils present EOM: EOMs intact bilaterally Direct Ophthalmoscopy: No no photophobia Neck Neck: Yes no lymphadenopathy, No tender and Yes no JVD Thyroid: Thyroid normal Carotids: no bruits Chest Chest palpation & inspection: no tenderness Resp Effort & Inspection: normal respiratory effort, no audible wheezes, not labored and no stridor Auscultation: no crackles, no rales, no rhonchi and no wheezes Cardio Jugular venous distension: no JVD Rate: regular rate, not bradycardic and not tachycardic Rhythm: regular rhythm Bruits: no carotid bruits Peripheral pulses: Peripheral pulses 2+ throughout GI Inspection: Yes normal to inspection, No abdominal wall ecchymosis and No visible herniation Palpation (GI): Soft to palpation, nontender, no guarding, not rigid and No hepatosplenomegaly present Auscultation: normoactive bowel sounds General: Yes no CVA tenderness Back/Spine/Pelvis Back: no CVA tenderness and No back tenderness Cervical Spine: cervical ROM normal Thoracic/Lumbar Spine: thoracic and lumbar spine normal to inspection, straight leg raise negative bilaterally, No thoraco-lumbar ROM limited and No lumbar spinal tenderness Skin Lesions: no lesions Rashes: no rashes Wounds: no wounds Neuro General: oriented to person, oriented to place, patient oriented x3, CN's II-XI intact bilaterally and No confusion Cranial nerves: Yes Equal, round and reactive pupils present and Yes Normal accommodation reflex present Cognition (Neuro): normal cognition Speech: No Abnormal speech present Gait exam (Neuro): Normal gait present Motor exam (neuro): 5/5 motor strength present throughout Extrem Right upper extremity: full ROM; no cyanosis Left upper extremity: full ROM; no cyanosis Right lower extremity: no edema Left lower extremity: no edema Psych Appearance: grossly normal Mental Status: mental status grossly normal Affect: normal affect Attitude: cooperative Thought process: Normal thought process present Assessment and Plan Assessment & Plan (1) Annual physical exam: Code(s): Z00.00 - Encounter for general adult medical examination without abnormal findings (2) HTN (hypertension): Code(s): I10 - Essential (primary) hypertension Qualifiers: Hypertension type: primary hypertension Qualified Code(s): I10 - Essential (primary) hypertension Plan: Patient's blood pressure acceptable today in office. Will continue her current dose of antihypertensive medication Goal blood pressures to be below 140/90 and above 100/60. (3) Lumbar disc disease with radiculopathy: Code(s): M51.16 - Intervertebral disc disorders with radiculopathy, lumbar region Plan: Patient is a chronic history lower lumbar spine pain which hinders her a bit to do her ADLs. Again as HPI patient has gotten cortisone injections in the past with minimal relief. Also continues to use ibuprofen, gabapentin, Tylenol with minimal relief. Will supply patient with short-term script for tramadol to use for pain scales of 8-10 . (4) Colon cancer screening: Code(s): Z12.11 - Encounter for screening for malignant neoplasm of colon Plan: Now willing to do colonoscopy procedure (5) Lipoma of forearm: Code(s): D17.20 - Benign lipomatous neoplasm of skin and subcutaneous tissue of unspecified limb Plan: Has developed a subcutaneous lump over her right forearm. She is interested in removal (6) Abnormal mammogram: Code(s): R92.8 - Other abnormal and inconclusive findings on diagnostic imaging of breast Plan: Most recent mammogram showing calcifications, will be followed up in 6 months. Of note sister at 40 from breast cancer. (7) Family history of thyroid dysfunction: Code(s): Z83.49 - Family history of other endocrine, nutritional and metabolic diseases (8) Cervical cancer screening: Code(s): Z12.4 - Encounter for screening for malignant neoplasm of cervix Orders: Orders Comprehensive [place]. Panel Fast Today I10 - Essential (primary) hypertension Lipid Panel Today I10 - Essential (primary) hypertension ABO RH Type Today I10 - Essential (primary) hypertension TSH reflex Free T4 Today Z83.49 - Family history of other endocrine, nutritional and metabolic diseases Referrals Gastroenterology Referral Z12.11 - Encounter for screening for malignant neoplasm of colon General Surgery Referral D17.20 - Benign lipomatous neoplasm of skin and subcutaneous tissue of unspecified limb TRAUMA COORDINATOR Referral Z12.4 - Encounter for screening for malignant neoplasm of cervix Medications: Refilled ibuprofen 800 mg PO TID 30 days PRN 90 tabs 1RF Pain M51.16 - Intervertebral disc disorders with radiculopathy, lumbar region lisinopril-hydrochlorothiazide 20-12.5 mg 1 tab PO DAILY 90 days 90 tabs 1RF I10 - Essential (primary) hypertension Coding Level of Care Code Est Pt Prev Care 40-64y(10695) Diagnoses Annual physical exam Z00.00 Primary hypertension I10 Hypertension type: primary hypertension Lumbar disc disease with radiculopathy M51.16 Colon cancer screening Z12.11 Lipoma of forearm D17.20 Abnormal mammogram R92.8 Family history of thyroid dysfunction Z83.49 Cervical cancer screening Z12.4
[2024-05-10 11:45] VITALS: BP 124/80; PULSE 80; O2SAT 99; BMI 24.5
== END 2024-05-10 12:08 | disposition home or self-care (01) ==
PROVIDERS: PCP Physician Assistant; Visit Provider Physician Assistant
DX: Z00.00 Encounter for general adult medical examination without abnormal findings (principal); I10 Essential (primary) hypertension; M51.16 Intervertebral disc disorders with radiculopathy, lumbar region; Z12.11 Encounter for screening for malignant neoplasm of colon; D17.20 Benign lipomatous neoplasm of skin and subcutaneous tissue of unspecified limb; R92.8 Other abnormal and inconclusive findings on diagnostic imaging of breast; Z83.49 Family history of other endocrine, nutritional and metabolic diseases; Z12.4 Encounter for screening for malignant neoplasm of cervix
CPT/HCPCS: 99396

== ENCOUNTER 2024-05-31 13:13 | Outpatient (AMB) | payer OTHER, SELFPAY ==
--- NOTE | 2024-05-31 13:29 | MHC.OFFVIS ---
Vital Signs 05/31/24 13:35 Height 5 ft 4 in Weight 143 lb BMI 24.5 BP 150/90 H Blood Pressure Location Lt brachial Position Sitting Pulse 82 Intake Visit Reasons: Lipoma~ Rt forearm Intake Note: Patient is seen in office for evaluation and treatment of a lipoma of the right forearm. 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 This has gradually increased in size but does not cause any discomfort. She denies any trauma although there is a small scar adjacent to the lesion. She is requesting excision of this enlarging mass. FOR[facility]LY [facility], [facility] Medical History Numbness in left leg Sciatica Gallstones History of palpitations Lower back pain High blood pressure Surgical History Hx of cholecystectomy No pertinent past surgical history Family History Father Stroke Hypertension Mother Hypertension Sister Breast cancer, Onset Age: 45 Family/Other Alcoholism Social History Housing: Apartment Are you a primary skin care technician to a significant other at home: No Do you presently have visiting nurse or other home services: No Alcohol intake: current Alcohol intake frequency: a few times a month Patient Tobacco Use Status: Never used Tobacco e-Cigarette/Vaping Use: Never Used Second Hand Smoke Exposure: No service: No Current occupational status: unemployed Cognitive needs: No Hearing needs: No Vision needs: No Review of Systems Const Denies chills, Denies fever(s), Denies headache(s) and Denies poor appetite ENT Denies dizziness and Denies headache(s) Card Denies chest pain, Denies rapid heart rate, Denies palpitations and Denies slow heart rate Resp Denies chest congestion, Denies cough, Denies pain on inspiration and Denies wheezing GI Reports abdominal pain, Reports bloating, Denies change in stool character, Denies constipation, Denies diarrhea, Reports nausea, Reports vomiting and Denies hematemesis Musc Denies back pain, Denies arthralgias, Denies joint swelling and Denies numbness Skin/Breast Denies change in pigmentation, Denies erythema and Denies rash Neuro Denies confusion, Denies dizziness, Denies headache(s) and Denies numbness Psych Denies anxiety, Denies confusion and Denies depression Endo Denies palpitations [place]/Lymph Denies easy bleeding, Denies easy bruising and Denies lymphadenopathy Aller/Immun Denies wheezing Physical Exam Const General: No confusion Nutritional Appearance: well nourished Orientation/consciousness: No confusion Limitations: no limitations HEENT Head: Yes normocephalic and Yes atraumatic Ears: hearing grossly normal bilaterally Resp Effort & Inspection: normal respiratory effort, no audible wheezes, no cough and no respiratory distress Cardio Jugular venous distension: no JVD GI Inspection: Yes normal to inspection Skin Other: Warm, dry, no rash Neuro General: No confusion Extrem General: Yes no clubbing, cyanosis or edema Elbow/forearm/wrist images: 1. 2 cm soft mobile mass in the subcutaneous tissue, slight bluish discoloration, possible lipoma verses cystic collection verses varix Assessment & Plan Assessment & Plan (1) Lipoma of forearm: Code(s): D17.20 - Benign lipomatous neoplasm of skin and subcutaneous tissue of unspecified limb Category: Medical Plan 54-year-old female patient presenting with a soft tissue mass of the right forearm which feels consistent with a possible lipoma verses cystic collection. I recommended excision of this lesion as a minor surgery under local anesthesia. After discussion of the procedure, risks, and alternatives, she consents to the surgery. Coding Level of Care Code New Pt Level 4 (54763) Diagnoses Lipoma of forearm D17.20
[2024-05-31 13:35] VITALS: BP 150/90; PULSE 82; BMI 24.5
== END 2024-05-31 13:47 | disposition home or self-care (01) ==
PROVIDERS: PCP Physician Assistant; Referring Provider Physician Assistant; Visit Provider Surgery
DX: D17.20 Benign lipomatous neoplasm of skin and subcutaneous tissue of unspecified limb (principal)
CPT/HCPCS: 99204

== ENCOUNTER → 2024-05-31 13:13 | Outpatient (BNVA) | payer OTHER, SELFPAY | PROVIDERS: PCP Physician Assistant; Referring Provider Physician Assistant; Visit Provider Surgery | DX: D17.21 Benign lipomatous neoplasm of skin and subcutaneous tissue of right arm (principal) | CPT/HCPCS: 99202 ==

== ENCOUNTER 2024-08-17 08:54 | Outpatient (AMB) | payer OTHER, SELFPAY ==
--- NOTE | 2024-08-17 08:55 | A.OFFVIS_ITS ---
Vital Signs 08/17/24 08:56 Height 5 ft 4 in Weight 146 lb 13.246 oz BMI 25.2 BP 138/84 Blood Pressure Location Rt brachial Position Sitting Pulse 68 Pulse Source Pulse Oximeter Pulse Oximetry (%) 99 Oxygen Delivery Method Room Air Intake Visit Reasons: Tatums scrn Intake Note: Relevant Flags or Indicators ? Requires Collar Baster Jumpbasting? N Analisa presents in office today for a scheduled colo consult. Initial + routine per PCP. Pt had not wanted to have colo procedure previously. CC; Since last visit; labs ordered ? none. Rx ordered ? no. Diagnostics/images ordered ? none. Relevant GI Sx as reported per pt; None ? Hx of any recent surgeries? None ? Pertinent FMHx? Breast cancer - Sister () Allergies No Known Allergies Allergy (Verified 08/17/24 08:56) HPI HPI Tatums scrn: Details: 54 Year old? female here today for pre colonoscopy screening.? Patient was sent to us by her PCP.? This is her first colonoscopy screening.? Patient denies any gastrointestinal symptoms in the past or at present.? Denies any personal or family history of gastrointestinal disease, colon polyps, or CRC.? Denies history of difficulty with sedation or anesthesia in the past.? Negative for history of sleep apnea.? Denies any history of cardiac, renal, pulmonary, or hepatic disease.?? No history of infectious? diseases like hepatitis A, B, C, HIV or tuberculosis.? Patient is not on any anticoagulation COUNTS INCLUDE 234 BEDS AT THE [facility] Medical History Numbness in left leg Sciatica Gallstones History of palpitations Lower back pain High blood pressure Surgical History Hx of cholecystectomy No pertinent past surgical history Family History Father Stroke Hypertension Mother Hypertension Sister Breast cancer, Onset Age: 45 Family/Other Alcoholism Social History Housing: Apartment Are you a primary healthcare applications analyst to a significant other at home: No Do you presently have visiting nurse or other home services: No Alcohol intake: current Alcohol intake frequency: a few times a month Patient Tobacco Use Status: Never used Tobacco e-Cigarette/Vaping Use: Never Used Second Hand Smoke Exposure: No service: No Current occupational status: unemployed Cognitive needs: No Hearing needs: No Vision needs: No Review of Systems Const Denies weight gain and Denies weight loss ENT Reports no additional complaints, Denies dysphagia and Denies odynophagia Card Reports no additional complaints Resp Reports no additional complaints GI Denies abdominal pain, Denies belching, Denies melena, Denies bloating, Denies change in bowel habits, Denies dysphagia, Denies excessive flatus, Denies dyspepsia, Denies heartburn, Denies diarrhea, Denies loose stools, Denies nausea, Denies odynophagia and Denies vomiting Musc Reports no additional complaints Neuro Reports no additional complaints Psych Reports no additional complaints Endo Reports no additional complaints Physical Exam Vital Signs: Last Vital Signs Pulse 68 08/17/24 08:56 BP 138/84 08/17/24 08:56 Pulse Ox 99 08/17/24 08:56 Oxygen Delivery Method Room Air 08/17/24 08:56 BMI result Body Mass Index 25.2 Const General: healthy appearing, no acute distress and well developed Nutritional Appearance: well nourished Orientation/consciousness: patient oriented x3 Resp Effort & Inspection: normal respiratory effort, able to speak in complete sentences, no tracheal deviation and symmetric chest movement Auscultation: clear to auscultation bilaterally Cardio Rate: regular rate GI Inspection: Yes normal to inspection and No distended Palpation (GI): Soft to palpation, not firm, nontender and No hepatosplenomegaly present Auscultation: normal bowel sounds General: Yes no CVA tenderness Back/Spine/Pelvis Back: no CVA tenderness Skin General skin exam: elasticity normal, turgor normal and dry skin Neuro General: patient oriented x3 Psych Appearance: grossly normal Mental Status: mental status grossly normal Assessment & Plan Assessment & Plan (1) Colon cancer screening: Code(s): Z12.11 - Encounter for screening for malignant neoplasm of colon Category: Medical Plan Patient denies any GI, cardiac or respiratory symptoms.? Denies any issues with anesthesia in the past.? Denies any history of sleep apnea.? No history infectious diseases in the past or present.? Not on any anticoagulation therapy.? No family or personal history of colon cancer or polyps.? Patient denies melena, hematochezia, unintentional weight loss or ribbon like stools.? Discussed at length the pre-procedure,? prep, diet & medications as well as what to expect prior, during and after the procedure.?? Stressed the importance of good bowel prep.? Recommended the use of Vaseline or Calmoseptine OTC & baby wipes with bowel movements to promote comfort.? ?Patient verbalizes understanding and agrees to plan of care.? She was given the opportunity to ask questions and all questions answered.? We will see her after the procedure Coding Level of Care Code New Pt Level 3 (65351) Diagnoses Colon cancer screening Z12.11 Time Spent (min) 40 Comment 30 minutes spent with patient and additional 10 minutes spent reviewing her records
[2024-08-17 08:56] VITALS: BP 138/84; PULSE 68; O2SAT 99; BMI 25.2
== END 2024-08-17 09:41 | disposition home or self-care (01) ==
PROVIDERS: PCP Physician Assistant; Visit Provider Nurse Practitioner Family
DX: Z01.818 Encounter for other preprocedural examination (principal); Z12.11 Encounter for screening for malignant neoplasm of colon
CPT/HCPCS: 99212

== ENCOUNTER → 2024-08-17 08:54 | Outpatient (BNVA) | payer OTHER, SELFPAY | PROVIDERS: PCP Physician Assistant; Visit Provider Nurse Practitioner Family | DX: Z12.11 Encounter for screening for malignant neoplasm of colon (principal) | CPT/HCPCS: 99212 ==

== ENCOUNTER 2024-11-03 09:52 | Outpatient (REF) | payer OTHER, SELFPAY ==
--- NOTE | ~2024-11-03 | MM_ITS ---
ADDENDUM #1 ADDENDUM: IMPRESSION: Grouped faint calcifications in the central to slightly upper outer breast are not significantly changed on magnification views for one year. Recommend follow-up diagnostic mammogram with left breast magnification views in one year to demonstrate 2 years of stability when the patient is due for bilateral mammography. OVERALL ASSESSMENT: BI-RADS 3 - Probably benign finding(s) - 12 month follow-up suggested RECOMMENDATION: 12 month diagnostic follow up Electronically signed by: Linda Sutherland DO 11/09/2024 08:12 AM EST RP ORIGINAL REPORT EXAMINATION: MM DIAGNOSTIC DIGITAL BREAST TOMOSYNTHESIS, BILATERAL CLINICAL INFORMATION: 1 year follow-up for grouped calcifications in the upper outer left breast. COMPARISON: Mammography: Comparison is made with relevant prior exams. TECHNIQUE: Digital breast mammography with tomosynthesis is performed in both the craniocaudal and mediolateral oblique views along with computer-aided detection (CAD). FINDINGS: There are scattered areas of fibroglandular density (ACR BI-RADS breast composition Category b). Grouped faint calcifications in the central to slightly upper outer breast are not significantly changed from priors on magnification views dating back for one year. No suspicious masses or other abnormal findings. Results are provided to the patient at time of visit by the technologist. IMPRESSION: Grouped faint calcifications in the central to slightly upper outer breast are not significantly changed on magnification views for one year. Recommend follow-up diagnostic mammogram with left breast medication views in one year to demonstrate 2 years of stability when the patient is due for bilateral mammography. ASSESSMENT: BI-RADS BI-RADS 3 - Probably benign finding(s) - 12 month follow-up suggested RECOMMENDATION: 12 month diagnostic follow up This patient's information was entered into a reminder system with a target due date for their next mammogram. Electronically signed by: Linda Sutherland DO 11/03/2024 11:19 AM EST RP MM/MM tomosynthesis diagnostic BI IMPRESSION: Grouped faint calcifications in the central to slightly upper outer breast are not significantly changed on magnification views for one year. Recommend follow-up diagnostic mammogram with left breast medication views in one year to demonstrate 2 years of stability when the patient is due for bilateral mammography. ASSESSMENT: BI-RADS BI-RADS 3 - Probably benign finding(s) - 12 month follow-up suggested RECOMMENDATION: 12 month diagnostic follow up This patient's information was entered into a reminder system with a target due date for their next mammogram. Electronically signed by: Linda Sutherland DO 11/03/2024 11:19 AM [facility] [place]
== END 2024-11-03 09:53 | disposition home or self-care (01) ==
LOC: HO.MAMMO 09:52
PROVIDERS: PCP Physician Assistant; Visit Provider Physician Assistant
DX: R92.1 Mammographic calcification found on diagnostic imaging of breast (principal)
CPT/HCPCS: 77062; 77066

== ENCOUNTER → 2024-11-03 10:30 | Outpatient (BNV) | payer OTHER, SELFPAY | PROVIDERS: PCP Physician Assistant; Visit Provider Internal Medicine | DX: R92.0 Mammographic microcalcification found on diagnostic imaging of breast (principal) | CPT/HCPCS: 77062; 77066 ==

== ENCOUNTER 2024-11-09 08:39 | Outpatient (REF) | payer OTHER, SELFPAY ==
[2024-11-09 21:30] LABS: Bacterial Vaginosis PCR POSITIVE (Negative); Candida Group PCR NOT DETECTED (Not Detect); Candida glab krusei PCR NOT DETECTED (Not Detect); Trichomonas vaginalis PCR NOT DETECTED (Not Detect)
== END 2024-11-09 08:40 | disposition home or self-care (01) ==
LOC: HO.LAB 08:39
PROVIDERS: PCP Physician Assistant; Visit Provider Advanced Practice Midwife
DX: Z01.419 Encounter for gynecological examination (general) (routine) without abnormal findings (principal); Z20.2 Contact with and (suspected) exposure to infections with a predominantly sexual mode of transmission; Z80.3 Family history of malignant neoplasm of breast
CPT/HCPCS: 81515; 99386; 99459

== ENCOUNTER 2024-11-09 08:39 | Outpatient (AMB) | payer OTHER, SELFPAY ==
--- NOTE | 2024-11-09 08:43 | A.OFFVIS_ITS ---
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 She is doing well with no cake press operator helper concerns. Currently not sexually active. Denies any vaginal dryness or irritation. STI testing offered; she accepts. Attempting to eat a healthy diet, stays active with exercise. Last pap smear; 2016. She reports abnormal pap years ago at [facility], no records available today. Last mammogram; 2024. Colonoscopy is booked. Denies any family history of ovarian or colon cancer. FH breast cancer-sister. [facility] Medical History (Updated 11/09/24 @ 09:30 by Terra Diaz CNM) Family history of breast cancer in first degree relative Numbness in left leg Sciatica Gallstones History of palpitations Lower back pain High blood pressure Surgical History Hx of cholecystectomy No pertinent past surgical history Family History (Updated 11/09/24 @ 09:30 by Terra Diaz CNM) Father Stroke Hypertension Mother Hypertension Sister Breast cancer, Onset Age: 45 Family/Other Alcoholism Social History Housing: Apartment Are you a primary home care rn to a significant other at home: No Do you presently have visiting nurse or other home services: No Alcohol intake: current Alcohol intake frequency: a few times a month Patient Tobacco Use Status: Never used Tobacco e-Cigarette/Vaping Use: Never Used Second Hand Smoke Exposure: No service: No Current occupational status: unemployed Cognitive needs: No Hearing needs: No Vision needs: No Female Reproductive History Menstrual Total pregnancies: 6 Full term: 5 Premature: 1 Number of Living Children: 6 Date of last pap smear: 04/30/17 (neg pap and hpv) Date of Mammogram: 11/03/24 (Birad 3) Review of Systems Const All systems reviewed & are unremarkable except as noted in HPI and below Reports as per HPI Eyes Reports no additional complaints ENT Reports no additional complaints Card Reports no additional complaints Resp Reports no additional complaints GI Reports as per HPI and Reports no additional complaints Reports as per HPI Musc Reports no additional complaints Skin/Breast Reports as per HPI Neuro Reports no additional complaints Psych Reports no additional complaints Endo Reports no additional complaints Remington/Lymph Reports no additional complaints Aller/Immun Reports no additional complaints Physical Exam Vital Signs: Last Vital Signs BP 128/74 11/09/24 08:45 BMI result Body Mass Index 25.9 Const General: cooperative, healthy appearing, no acute distress, well developed and alert Orientation/consciousness: patient oriented x3 HEENT Head: Yes normal to inspection Eyes General: appearance normal, both eyes and all related structures Neck Neck: Yes normal visual inspection Thyroid: Thyroid normal Chest Chest palpation & inspection: normal inspection of the chest and other (no puckering, dimpling, peau de orange, retraction, discharge, masses) Breast/axilla inspection: normal inspection of the breasts Breast/axilla palpation: normal palpation of the breasts Resp Effort & Inspection: normal respiratory effort GI Inspection: Yes normal to inspection Palpation (GI): Soft to palpation Rectal Exam - Female: deferred General: Yes bladder normal to palpation External Female Exam: normal external appearance and normal appearance of the urethra Speculum Exam - Vagina: normal appearance of the vagina, normal palpation, no rmal vaginal discharge and vagina atrophic Speculum Exam - Cervix: normal appearance of the cervix, normal palpation and Other cervical findings present (Postprocedural appearance, bled with Pap) Bimanual exam- vagina & uterus: normal bimanual exam, normal palpation, uterine size normal, bladder normal to palpation, normal palpation and non-tender Bimanual Exam- Adnexa, other: no masses Skin General skin exam: no rashes or lesions noted Rashes: no rashes Neuro General: patient oriented x3 Cognition (Neuro): normal cognition Extrem General: Yes normal to inspection Psych Attitude: cooperative Thought process: Normal thought process present Assessment & Plan Assessment & Plan (1) Encounter for well woman exam with routine gynecological exam: Code(s): Z01.419 - Encounter for gynecological examination (general) (routine) without abnormal findings Plan Discussed: Current recommendations for pap smears per ASCCP guidelines. Pap obtained today, request records from [facility] for all Pap and pathology records pertaining to cervical procedure. Referral for BRCA testing, patient accepts. Breast awareness, periodic self breast exams and yearly mammogram. Maintain a healthy lifestyle, well balanced diet including Calcium 1,200 mg and Vitamin D 600 IU daily, and routine exercise. Osteoporosis prevention handouts, provided and dietary intake for calcium reviewed. Use of condoms for STI prevention if indicated. Contact the office with any postmenopausal bleeding. Patient verbalizes understanding and agrees to the plan of care. She was given opportunity to ask questions and all questions were answered to the best of my ability. RTO in 1 year for annual cake press operator helper exam. This note is constructed using voice recognition software. While every effort has been made to ensure accuracy, systems qa analyst errors may have been included. Orders: Orders Hepatitis C Antibody Reflex Today Z20.2 - Contact with and (suspected) exposure to infections with a predominantly sexual mode of transmission Syphilis Screen Today Z20.2 - Contact with and (suspected) exposure to infections with a predominantly sexual mode of transmission Bacterial Vaginosis Panel Today Z20.2 - Contact with and (suspected) exposure to infections with a predominantly sexual mode of transmission CT NG by PCR Today Z20.2 - Contact with and (suspected) exposure to infections with a predominantly sexual mode of transmission HPV High risk Today Z01.419 - Encounter for gynecological examination (general) (routine) without abnormal findings Pap Smear Today Z01.419 - Encounter for gynecological examination (general) (routine) without abnormal findings HIV Ab/Ag Today Z20.2 - Contact with and (suspected) exposure to infections with a predominantly sexual mode of transmission Hepatitis B Core Antibody Today Z20.2 - Contact with and (suspected) exposure to infections with a predominantly sexual mode of transmission Referrals Breast Surgery Referral Z80.3 - Family history of malignant neoplasm of breast Medications: New agztyzfk-tnscdxv-kjre-lutein 1 tab PO DAILY 90 tabs 4RF Coding Level of Care Code New Pt Prev Care 40-64y(66922) Diagnoses Encounter for well woman exam with routine gynecological exam Z01.419
[2024-11-09 08:45] VITALS: BP 128/74; BMI 25.9
== END 2024-11-09 09:29 | disposition home or self-care (01) ==
LOC: HO.HWS 08:39
PROVIDERS: PCP Physician Assistant; Visit Provider Advanced Practice Midwife
DX: Z01.419 Encounter for gynecological examination (general) (routine) without abnormal findings (principal)
CPT/HCPCS: 99386; 99459

== ENCOUNTER 2024-11-09 09:13 | Outpatient (REF) | payer OTHER, SELFPAY ==
[2024-11-09 11:17] LABS: Syphilis Screen Nonreactive (Nonreactive)
[2024-11-09 11:18] LABS: HBc Num1 0.04 S/CO (0.00-0.79); HIV AB/AG Nonreactive (Nonreactive); HIV Num 1 0.09 S/CO (0.00-0.99); Hepatitis B Core Antibody Nonreactive (Nonreactive); ~HepC Num1 0.09 S/CO (0.00-0.79); ~Hepatitis C Antibody Nonreactive (Nonreactive)
[2024-11-10 04:40] LABS: CT PCR NOT DETECTED (Not Detect.); NG PCR NOT DETECTED (Not Detect.)
[2024-11-10 10:51] LABS: HPV 16,18/45 See PAP report
== END 2024-11-09 09:14 | disposition home or self-care (01) ==
LOC: HO.LNP 09:13
PROVIDERS: Visit Provider Advanced Practice Midwife
DX: Z01.419 Encounter for gynecological examination (general) (routine) without abnormal findings (principal); R87.619 Unspecified abnormal cytological findings in specimens from cervix uteri; R87.810 Cervical high risk human papillomavirus (HPV) DNA test positive; Z20.2 Contact with and (suspected) exposure to infections with a predominantly sexual mode of transmission; Z11.51 Encounter for screening for human papillomavirus (HPV); Z11.59 Encounter for screening for other viral diseases; Z72.89 Other problems related to lifestyle; Z87.42 Personal history of other diseases of the female genital tract
CPT/HCPCS: 86704; 86780; 86803; 87389; 87491; 87591; 87626; 88175

== ENCOUNTER 2024-11-09 09:29 | Outpatient (REF) | payer OTHER, SELFPAY | END 2024-11-09 09:30 | disposition home or self-care (01) | LOC: HO.LAB 09:29 | PROVIDERS: Absent Provider Advanced Practice Midwife; PCP Physician Assistant; Visit Provider Physician Assistant | DX: Z13.89 Encounter for screening for other disorder (principal) ==

== ENCOUNTER 2024-11-10 09:56 | Outpatient (AMB) | payer OTHER, SELFPAY ==
--- NOTE | 2024-11-10 10:14 | MHC.PC.OV ---
Vital Signs 11/10/24 10:16 Height 5 ft 4 in Weight 151 lb 4 oz BMI 26.0 BP 110/72 Blood Pressure Location Lt brachial Position Sitting Pulse 83 Pulse Source Pulse Oximeter Temp 96.9 F Temp Source Temporal Artery Scan Pulse Oximetry (%) 99 Oxygen Delivery Method Room Air Intake Visit Reasons: 6 Month F/U Staff Psychiatrist Required: No Accompanied by: Self / Same As Patient Allergies No Known Allergies Allergy (Verified 11/10/24 10:35) Medication List - Last Reconciled 11/10/24 by Se Miguel PA-C acetaminophen ER 650 mg PO Q12H 30 days gabapentin 600 mg PO BID 30 days ibuprofen 800 mg PO TID PRN 30 days lisinopril-hydrochlorothiazide 20-12.5 mg 1 tab PO DAILY 90 days ktfbxqua-mefxarg-zhoi-lutein 1 tab PO DAILY tramadol 50 mg PO Q8H PRN 7 days Tobacco use date assessed: 11/10/24 Dental Screening Dental Screen Date: 11/10/24 Did you have a dental visit in the last 12 months?: Yes Did you have a dental problem in the last 6 months where you did not have access to dental care?: No Was dental information given to patient?: Patient has dentist HPI 6 Month F/U HPI Details Patient is a 54 year-old female here today for follow-up visit? . Patient has a past medical history significant for hypertension. ?Lumbar spine pain:? Patient continues to lumbar spine pain and has had history of sciatica down left lower extremity.? She has gotten lumbar x-rays in 2021 which did not show any osteoarthritic deformities.? She does report getting cortisone injections in her lumbar spine in the past at had helped temporarily. She denies ever having physical therapy for her lumbar spine pain.? Currently using gabapentin 800 mg T.i.d. for her pain with minimal affect. As seen land leasing information clerk in the past and all rheumatology testing was essentially normal.? X-rays knees and back were normal. ?? Fibromyalgia .. Hypertension:? Blood pressure has been stable. She does not check her blood pressure at home.? Otherwise denies any chest discomfort, headaches, shortness of breath. [facility] Medical History Family history of breast cancer in first degree relative Numbness in left leg Sciatica Gallstones History of palpitations Lower back pain High blood pressure Surgical History Hx of cholecystectomy No pertinent past surgical history Family History Father Stroke Hypertension Mother Hypertension Sister Breast cancer, Onset Age: 45 Family/Other Alcoholism Social History Housing: Apartment Are you a primary medicare coordinator to a significant other at home: No Do you presently have visiting nurse or other home services: No Alcohol intake: current Alcohol intake frequency: a few times a month Patient Tobacco Use Status: Never used Tobacco e-Cigarette/Vaping Use: Never Used Second Hand Smoke Exposure: No service: No Current occupational status: unemployed Cognitive needs: No Hearing needs: No Vision needs: No Questionnaire PHQ-9 Over the last 2 weeks, how often have you been bothered by any of the following problems? 1. Little interest or pleasure in doing things: not at all 2. Feeling down, depressed, or hopeless: not at all 3. Trouble falling or staying asleep, or sleeping too much: not at all 4. Feeling tired or having little energy: not at all 5. Poor appetite or overeating: not at all 6. Feeling bad about yourself - or that you are a failure or have let yourself or your family down: not at all 7. Trouble concentrating on things, such as reading the newspaper or watching television: not at all 8. Moving or speaking so slowly that other people could have noticed. Or the opposite - being so fidgety or restless that you have been moving around a lot more than usual: not at all 9. Thoughts that you would be better off or of hurting yourself in some way: not at all Total score: 0 Depression Screening Interpretation: Negative Depression Screening Done: Yes 25346 - PHQ-9 Billing: Yes Source: Developed by Drs. Julien Pruitt, Marina Rene, Jovan Perez and colleagues, with an educational good from [employer]. Thrive Questionnaire Date Thrive assessed: 11/10/24 I am a: Patient What is your living situation today?: I have a steady place to live Within the past 12 months, did the food you bought not last and you didn't have the money to get more?: Never true Within the past 12 months, did you worry whether your food would run out before you got money to buy more?: Never true Do you have trouble paying for medicines?: No Do you have trouble getting transportation to medical appointments?: No Do you have trouble paying your heating and electricity bill?: No Do you have trouble taking care of your child, family member or friend?: No Do you have trouble with day-to-day activities such as bathing, preparing meals, shopping, managing finances, etc.?: No Are you currently unemployed and looking for a job?: No Are you interested in more education?: No Please select the resources that you would like help with: None Currently or been in a relationship where the following occur: No concerns reported THRIVE Score: 0 AUDIT C Alcohol Use Questionnaire (AUDIT-C) 1. How often do you have a drink containing alcohol?: 2-4 times a month 2. How many drinks containing alcohol do you have on a typical day when you are drinking?: 1 or 2 3. How often do you have six or more drinks on one occasion?: Never Total Score: 2 MARIA VICTORIA-7 AMB Questionnaire MARIA VICTORIA-7 Date MARIA VICTORIA - 7 assessed: 11/10/24 Feeling nervous, anxious, or on edge: 0 = Not at all Not being able to stop or control worryin = Not at all Worrying too much about different things: 0 = Not at all Trouble relaxin = Not at all Being so restless that it is hard to sit still: 0 = Not at all Becoming easily annoyed or irritable: 0 = Not at all Feeling afraid as if something awful might happen: 0 = Not at all Total MARIA VICTORIA-7 score (0-4 normal; 5-9 mild; 10-14 moderate; 15-21 severe): 0 Source: Developed by Drs. Julien Pruitt, Marina Rene, Jovan Perez and colleagues, with an educational good from [employer] MARIA VICTORIA-7 Assessment Billing MARIA VICTORIA-7 Assessment Tool: MARIA VICTORIA-7 Assessment 67300 Physical exam (Primary Care) Vital Signs: Last Vital Signs Temp 96.9 F 11/10/24 10:16 Pulse 83 11/10/24 10:16 BP 110/72 11/10/24 10:16 Pulse Ox 99 11/10/24 10:16 Oxygen Delivery Method Room Air 11/10/24 10:16 BMI result Body Mass Index 26.0 Tobacco/Smoking Status: Tobacco use Status Tobacco use date assessed 11/10/24 11/10/24 10:20 Patient Tobacco Use Status Never used Tobacco 11/10/24 10:14 e-Cigarette/Vaping Use Never Used 11/10/24 10:14 PHQ-9: PHQ-9 Score PHQ-9: Total score 0 11/10/24 10:20 Depression Screening Interpretation: Negative Thrive Assessment: Date of Thrive Assessment Date Thrive assessed 11/10/24 11/10/24 10:20 Currently or been in a relationship where the following occur: No concerns reported Coding Level of Care Code Est Pt Level 4 (89606) Diagnoses Primary hypertension I10 Hypertension type: primary hypertension Acute low back pain without sciatica, unspecified back pain laterality M54.5 Chronicity: acute Back pain laterality: unspecified Sciatica presence: without sciatica Abnormal mammogram R92.8 Additional Codes MARIA VICTORIA-7 Assessment Billing - MARIA VICTORIA-7 Assessment Tool: MARIA VICTORIA-7 Assessment 25950 ([id number]) PHQ-9 - 04210 - PHQ-9 Billing: Yes ([id number]) Assessment & Plan Assessment & Plan (1) HTN (hypertension): Code(s): I10 - Essential (primary) hypertension Category: Medical Qualifiers: Hypertension type: primary hypertension Qualified Code(s): I10 - Essential (primary) hypertension Plan: Patient's blood pressure acceptable today in office. Will continue her current dose of antihypertensive medication with goal blood pressure to remain below 140/90 (2) Lower back pain: Code(s): M54.5 - Low back pain Category: Medical Qualifiers: Chronicity: acute Back pain laterality: unspecified Sciatica presence: without sciatica Qualified Code(s): M54.5 - Low back pain Plan: Has chronic lower back pain and takes gabapentin with good effect. Not interested in any physical therapy or pain management referral at this time. (3) Abnormal mammogram: Code(s): R92.8 - Other abnormal and inconclusive findings on diagnostic imaging of breast Category: Medical Plan: Has been noted to have abnormal mammograms with calcifications. Will be for to general surgeon for genetic testing. Orders: Orders Microalbumin, Random (w Creat) Today I10 - Essential (primary) hypertension Comprehensive [place]. Panel Fast Today I10 - Essential (primary) hypertension Complete Blood Count no Diff Today I10 - Essential (primary) hypertension
[2024-11-10 10:16] VITALS: BP 110/72; PULSE 83; TEMP 36.1; O2SAT 99; BMI 26.0
== END 2024-11-10 11:48 | disposition home or self-care (01) ==
PROVIDERS: PCP Physician Assistant; Visit Provider Physician Assistant
DX: I10 Essential (primary) hypertension (principal); M54.50 Low back pain, unspecified; R92.8 Other abnormal and inconclusive findings on diagnostic imaging of breast; Z23 Encounter for immunization

== ENCOUNTER → 2024-11-10 09:56 | Outpatient (BNVA) | payer OTHER, SELFPAY | PROVIDERS: PCP Physician Assistant; Visit Provider Physician Assistant | DX: Z23 Encounter for immunization (principal); I10 Essential (primary) hypertension; M54.50 Low back pain, unspecified; R92.8 Other abnormal and inconclusive findings on diagnostic imaging of breast | CPT/HCPCS: 90471; 90656; 96127; 99212 ==

== ENCOUNTER 2024-12-27 12:03 | Outpatient (AMB) | payer OTHER, SELFPAY ==
--- NOTE | 2024-12-27 12:08 | MHC.OFFVIS ---
Vital Signs 12/27/24 12:15 Height 5 ft 4 in Weight 146 lb BMI 25.1 BP 120/70 Intake Visit Reasons: Colposcopy Project Facilitator Required: No Information Interpreted: non-clinical & clinical Arch Cushion Press Operator: Arch Cushion Press Operator Present Accompanied by: Self / Same As Patient Allergies No Known Allergies Allergy (Verified 12/27/24 12:16) Post menopausal: Yes HPI Comments Details: Presenting referred from Terra Diaz CNM regarding the following Pap smear: General Category: Epithelial cell abnormality. Adequacy: Endocervical component present. Interpretation: Atypical squamous cells - cannot exclude a high grade squamous intraepithelial lesion (ASC-H). Abundant acute inflammation. HPV High Risk: Positive HPV Genotyping 16: Negative HPV Genotyping 18: Negative [facility] Medical History Family history of breast cancer in first degree relative Numbness in left leg Sciatica Gallstones History of palpitations Lower back pain High blood pressure Surgical History Hx of cholecystectomy No pertinent past surgical history Family History Father Stroke Hypertension Mother Hypertension Sister Breast cancer, Onset Age: 45 Family/Other Alcoholism Social History Housing: Apartment Are you a primary point of care technician to a significant other at home: No Do you presently have visiting nurse or other home services: No Alcohol intake: current Alcohol intake frequency: a few times a month Patient Tobacco Use Status: Never used Tobacco e-Cigarette/Vaping Use: Never Used Second Hand Smoke Exposure: No service: No Current occupational status: unemployed Cognitive needs: No Hearing needs: No Vision needs: No Review of Systems Const All systems reviewed & are unremarkable except as noted in HPI and below Reports as per HPI and Reports no additional complaints GI Reports no additional complaints Reports no additional complaints Office Procedures Colposcopy Colposcopy: Pre-Procedure Counseling: Before beginning the procedure, I conducted comprehensive counseling with the patient. We thoroughly discussed the procedure itself, including its details, alternatives, and all associated risks. This included but not limited to the following complications such as bleeding, infection, and injury to the vagina, bladder, and vessels, as well as the potential need for transfusion with all its associated risks. Subsequently, the patient sign the consent. Pap smear result: LSIL. Procedure: During the procedure, the following steps were performed: A speculum was inserted, and acetic acid was applied. Colposcopy was conducted, allowing visualization of the transformation zone. Acetowhite lesions were identified at the 5+ 6+ 7+ 11+ 12+ 1 o'clock position. Cervical biopsies were obtained from the 5+ 6+ 7+ 11+ 12+ 1 o'clock position, followed by an endocervical curettage (ECC). Vaginoscopy of the upper vagina revealed no evidence of aceto-white lesions. Hemostasis was achieved using Monsel solution, and the patient tolerated the procedure well. Post-Procedure Instructions: The patient was advised to promptly contact the office or the after hours answering service or go to the emergency room if experiencing a temperature exceeding 100.4?F, abdominal pain, nausea/vomiting, or bleeding. Additionally, the patient was instructed to abstain from vaginal intercourse and bathtub use. The patient confirmed understanding of these instructions. Discharge Instructions: The patient was instructed to schedule a follow-up appointment in 2 weeks for further evaluation and management. Please note that this note was generated using a voice recognition program, and errors may have occurred during financial reporting director. 81349-Umwpugnry of cervix including upper vagina with biopsy and ECC Procedure code (CPT) selection complete Assessment & Plan Assessment & Plan (1) Pap smear of cervix with ASCUS, cannot exclude HGSIL: Comment: HPV high-risk positive, HPV 16/18 negative Code(s): R87.611 - Atypical squamous cells cannot exclude high grade squamous intraepithelial lesion on cytologic smear of cervix (ASC-H) Category: Medical Plan: Discussed with the patient the result of her abnormal pap, its significance, risk of progression, persistence, and regression. the false positive/negative rate of a Pap smear as a screening test in detecting cervical cancer and the indication for a diagnostic test -colposcopy, biopsy, endocervical curettage. The patient verbalized understanding and agreed with the plan, all questions answered. Colpo/biopsy/ECC done, see procedure note Orders: Orders AMB Colposcopy Today R87.611 - Atypical squamous cells cannot exclude high grade squamous intraepithelial lesion on cytologic smear of cervix (ASC-H) Coding Level of Care Code Est Pt Level 3 (65742) Procedure Only Diagnoses Pap smear of cervix with ASCUS, cannot exclude HGSIL R87.611 CPT Codes Colposcopy - CPT: 56097-Iaamiiind of cervix including upper vagina with biopsy and ECC ([id number])
[2024-12-27 12:15] VITALS: BP 120/70; BMI 25.1
--- OUTSIDE RECORDS SUMMARY | 2024-12-27 15:11 | XMS_ITS | Clinical Summary ---
Author Organization [employer] [facility] Address [address] [place] [address] Care Team Providers Care Unit Aide Name Role Phone Unavailable Primary Care Provider Unavailabl e Immunizations Name Administration Dates Next Due Pfizer Covid-19 Vaccine 12+ Bivalent 10/17/2022 Social History Tobacco Use Types Packs/Day Years Used Date Smoking Tobacco: Never Assessed Comments Unknown Sex and Gender Information Value Date Recorded Sex Assigned at Female 08/25/2022 10:14 AM EDT Legal Sex Female 10:14 AM EDT Gender Identity Female 10/17/2022 1:41 PM EST Sexual Orientation Not on file Plan of Treatment Health Maintenance Due Date Last Done Comments CT Colonography 1970 Colonoscopy 1970 Colorectal Cancer Screening 1970 Depression Screening 1970 FIT DNA/Cologuard 1970 FIT 1970 FOBT 1970 HIV Screening 1970 SDOH Screening 1970 Sigmoidoscopy 1970 Alcohol/Substance Use Screening 1982 Tobacco Screening 1982 Hepatitis C Screening 1988 Hepatitis B Vaccines (1 of 3 - 19+ 3-dose series) 1989 Pap Smear 1991 Cervical Cancer Screening 2000 HPV/Cotest 2000 Mammogram 2010 Pneumococcal Vaccine: 50+ Years (1 of 1 - PCV) 2020 Zoster Vaccines (1 of 2) 2020 COVID-19 Vaccine (4 - 2023- season) 2024 10/17/2022, 03/13/2021, 02/19/2021 Influenza Vaccine (#1) 2024 , 09/12/2019, 08/17/2014, Additional history exists DTaP/Tdap/Td Vaccines (2 - Td or Tdap) 03/05/2031 03/05/2021, 09/08/2008, 05/09/1998 RSV Patients and Patients Aged 60 years or older (1 - 1-dose 75+ series) 2045 HIB Vaccines Aged Out No longer eligi ble based on patient's age to complete this topic HPV Vaccines Aged Out No longer eligi ble based on patient's age to complete this topic Hepatitis A Vaccines Aged Out No long er eligible based on patient's age to complete this topic IPV Vaccines Aged Out No longer eligi ble based on patient's age to complete this topic Meningococcal Vaccine Aged Out No shannan víctor eligible based on patient's age to complete this topic RSV under 20 months Aged Out No longe r eligible based on patient's age to complete this topic Rotavirus Vaccines Aged Out No longer eligible based on patient's age to complete this topic Insurance
--- OUTSIDE RECORDS SUMMARY | 2024-12-27 15:11 | XMS_ITS | Clinical Summary ---
Author Organization [facility] Address [address] [place] [address] Care Team Providers Care Creative Technologist Name Role Phone Ynug Phillips MD Primary Care Provider Medical History Medical History Date Comments Hypertension 12/11/2011 DX:Hypertension Anemia 12/11/2011 DX:Anemia Family History Medical History Relation Name Comments Heart attack Brother 1 fatal Relation Name Status Comments Brother 1 Brother 2 Social History Tobacco Use Types Packs/Day Years Used Date Smoking Tobacco: Never Assessed Alcohol Use Standard Drinks/Week Comments Not Asked 0 (1 standard drink = 0.6 oz pur e alcohol) Comments Unknown Sex and Gender Information Value Date Recorded Sex Assigned at Not on file Legal Sex Female 1:55 PM EST Gender Identity Not on file Sexual Orientation Not on file Obstetrics History Plan of Treatment Health Maintenance Due Date Last Done Comments Breast Cancer Screening 1970 DTaP,Tdap,and Td Vaccines (1 - Tdap) 1989 Hepatitis B Vaccines (1 of 3 - 19+ 3-dose series) 1989 Cervical Cancer Screening: P ap Smear 1991 Pneumococcal Vaccine: 50+ Ye ars (1 of 1 - PCV) 2020 Zoster Vaccines (1 of 2) 2020 Cholesterol Screening (Lipid Panel) 11/29/2023 Colorectal Cancer Screening: Colonoscopy 11/29/2023 Depression Screening 11/29/2023 HIV Screening 11/29/2023 Hepatitis C Screening 11/29/2023 Hypertension/CHF/CAD Annual BMP Blood Test 11/29/2023 Social Influencers of Health Screening 11/29/2023 COVID-19 Vaccine ( - 2023-2 5 season) 2024 Influenza Vaccine (#1) 2024 HIB Vaccines Aged Out No longer eligi [...] on patient's age to complete this topic MMR Vaccines Aged Out No longer eligi ble based on patient's age to complete this topic Meningococcal ACWY Vaccine Aged Out N o longer eligible based on patient's age to complete this topic Meningococcal B Vacine Aged Out No lo nger eligible based on patient's age to complete this topic Pneumococcal Vaccine: Pediat rics (0 to 5 Years) and At-Risk Patients (6 to 64 Years) Aged Out No longer eligible b ased on patient's age to complete this topic RSV Immunization Patients Un ronald 20 months Aged Out No longer eligible b ased on patient's age to complete this topic Varicella Vaccines Aged Out No longer eligible based on patient's age to complete this topic Care Teams Creative Technologist Relationship Specialty Start Date End Date Yung Phillips MD [address] [place] [address] PCP - General Internal Medicine 12/25/16
== END 2024-12-27 12:39 | disposition home or self-care (01) ==
PROVIDERS: PCP Physician Assistant; Visit Provider Obstetrics & Gynecology
DX: R87.611 Atypical squamous cells cannot exclude high grade squamous intraepithelial lesion on cytologic smear of cervix (ASC-H) (principal)
CPT/HCPCS: 57454

== ENCOUNTER 2024-12-27 12:03 | Outpatient (REF) | payer OTHER, SELFPAY ==
--- OUTSIDE RECORDS SUMMARY | 2024-12-27 16:30 | XMS_ITS | Clinical Summary ---
Author Organization [facility] Address [address] [place] [address] Care Team Providers Care Inspector General Name Role Phone Unavailable Primary Care Provider [...]
--- OUTSIDE RECORDS SUMMARY | 2024-12-27 16:30 | XMS_ITS | Clinical Summary ---
Author Organization [email or web address] Address [address] [place] [address] Care Team Providers Care Shop Technician Name Role Phone Yung Phillips MD Primary Care Provider Medical History [...] age to complete this topic Care Teams Shop Technician Relationship Specialty Start Date End Date Yung Phillips MD [address] [place] [address] PCP - General Internal Medicine 12/25/16
== END 2024-12-27 12:04 | disposition home or self-care (01) ==
LOC: HO.LNP 12:03
PROVIDERS: PCP Physician Assistant; Visit Provider Obstetrics & Gynecology
DX: R87.611 Atypical squamous cells cannot exclude high grade squamous intraepithelial lesion on cytologic smear of cervix (ASC-H) (principal)
CPT/HCPCS: 57454; 88305; 88341; 88342

== ENCOUNTER 2025-01-10 09:55 | Outpatient (AMB) | payer OTHER, SELFPAY ==
--- NOTE | 2025-01-10 10:04 | A.OFFVIS_ITS ---
Intake Visit Reasons: Colpo results/exam? Tuber Machine Operator: Tuber Machine Operator Present (Tonia) Accompanied by: Self / Same As Patient Allergies No Known Allergies Allergy (Verified 01/10/25 10:04) HPI Comments Details: Presenting post colpo for follow-up. The patient is doing well with no complaints. The pathology showed the following: A. Endocervix, curettage: Scant superficial strips of endocervical epithelium within normal limits; mucoinflammatory material. B. Cervix, 1 o'clock, biopsy: - Inflamed endocervical mucosa; no atypia identified. - No squamous epithelium identified. C. Cervix, 5 o'clock, biopsy: Inflamed cervical transformation zone mucosa with reactive changes. D. Cervix, 6 o'clock, biopsy: - Mildly inflamed squamous mucosa with reactive changes. - No endocervical epithelium identified. E. Cervix, 7 o'clock, biopsy: - Mildly inflamed squamous mucosa with reactive changes. - No endocervical epithelium identified. F. Cervix, 11 o'clock, biopsy: Inflamed squamous and endocervical mucosa with reactive changes. G. Cervix, 12 o'clock, biopsy: - Low-grade squamous intraepithelial lesion (DELVIS 1). - Inflamed endocervical mucosa; no atypia identified The patient is complaining of suprapubic pressure associated with urinary frequency and dysuria PFSH Medical History Family history of breast cancer in first degree relative Numbness in left leg Sciatica Gallstones History of palpitations Lower back pain High blood pressure Surgical History Hx of cholecystectomy No pertinent past surgical history Family History Father Stroke Hypertension Mother Hypertension Sister Breast cancer, Onset Age: 45 Family/Other Alcoholism Social History Housing: Apartment Are you a primary career guidance counselor to a significant other at home: No Do you presently have visiting nurse or other home services: No Alcohol intake: current Alcohol intake frequency: a few times a month Patient Tobacco Use Status: Never used Tobacco e-Cigarette/Vaping Use: Never Used Second Hand Smoke Exposure: No service: No Current occupational status: unemployed Cognitive needs: No Hearing needs: No Vision needs: No Review of Systems Const All systems reviewed & are unremarkable except as noted in HPI and below Reports as per HPI and Reports no additional complaints GI Reports no additional complaints Reports no additional complaints Assessment & Plan Assessment & Plan (1) Dysplasia of cervix, low grade (DELVIS 1): Code(s): N87.0 - Mild cervical dysplasia Category: Medical Plan: Discussed with the patient the pathology results of the colposcopy biopsies & endocervical curettage ( mild dysplasia-DELVIS 1). Discussed with the patient the sensitivity specificity, positive and negative predictive value in detecting cervical cancer in addition discussed the regression, persistence and progression rates. Recommended co-testing in 12 months, if cytology and or HPV are abnormal will proceed was colposcopy biopsy and endocervical curettage, if lesions gets worse or stays persistent for 2 years will proceed with loop electric excision procedure. Instructions given to the patient to schedule a co test appointment in 1 year. All questions answered the patient verbalized understanding. (2) Microscopic hematuria: Code(s): R31.29 - Other microscopic hematuria Category: Medical Plan: Urine dip was positive for microscopic hematuria and leukocytes. Will send a urine for culture treat with Macrobid 100 mg p.o. b.i.d. for 5 days . Instructions given the patient to call in case of fever above 100.4, nausea or vomiting, flank pain or persistent of her symptoms. Instructions given the patient to schedule a 2 week follow-up appointment for repeat urine dip. If urine microscopic hematuria is persistent with negative urine culture will order CT scan and refer to urology Coding Level of Care Code Est Pt Level 3 (82254) Diagnoses Dysplasia of cervix, low grade (EDLVIS 1) N87.0 Microscopic hematuria R31.29
--- OUTSIDE RECORDS SUMMARY | 2025-01-10 11:12 | XMS_ITS | Clinical Summary ---
Author Organization [facility] Address [address] [place] [address] Care Team Providers Care Bindery Chief Name Role Phone Yung Phillips MD Primary [...] age to complete this topic Care Teams Bindery Chief Relationship Specialty Start Date End Date Yung Phillips MD [address] [place] [address] PCP - General Internal Medicine 12/25/16
== END 2025-01-10 10:24 | disposition home or self-care (01) ==
LOC: HO.HWS 09:55
PROVIDERS: PCP Physician Assistant; Visit Provider Obstetrics & Gynecology
DX: N87.0 Mild cervical dysplasia (principal); R31.29 Other microscopic hematuria
CPT/HCPCS: 99213

== ENCOUNTER 2025-01-10 09:55 | Outpatient (REF) | payer OTHER, SELFPAY | END 2025-01-10 09:56 | disposition home or self-care (01) | LOC: HO.LNP 09:55 | PROVIDERS: PCP Physician Assistant; Visit Provider Obstetrics & Gynecology | DX: R31.29 Other microscopic hematuria (principal); N87.0 Mild cervical dysplasia; Z98.890 Other specified postprocedural states | CPT/HCPCS: 87086; 87088; 87186; 99212 ==

== ENCOUNTER 2025-01-23 10:45 | Outpatient (AMB) | payer OTHER, SELFPAY ==
--- NOTE | 2025-01-23 10:53 | A.OFFPC_ITS ---
Vital Signs 01/23/25 10:54 Height 5 ft 4 in Weight 148 lb 4 oz BMI 25.4 BP 120/60 Blood Pressure Location Lt brachial Position Sitting Pulse 83 Pulse Source Pulse Oximeter Temp 97.5 F Temp Source Temporal Artery Scan Pulse Oximetry (%) 99 Oxygen Delivery Method Room Air Intake Visit Reasons: Rash , itchy Intake Note: Patient is here to follow up on Rash, Itchy started 01/21/25. Roller Inspector Required: No Facilities Maintenance Supervisor: Not Required per policy Accompanied by: Self / Same As Patient Allergies No Known Allergies Allergy (Verified 01/23/25 11:19) Medication List - Last Reconciled 01/23/25 by Saige Nolan PA-C acetaminophen ER 650 mg PO Q12H 30 days gabapentin 600 mg PO BID 30 days ibuprofen 800 mg PO TID PRN 30 days lisinopril-hydrochlorothiazide 20-12.5 mg 1 tab PO DAILY 90 days metronidazole 500 mg PO BID 7 days chsnwpxi-evfbbmv-zlct-lutein 1 tab PO DAILY nitrofurantoin monohyd/m-cryst 100 mg (Macrobid) 100 mg PO BID 5 days tramadol 50 mg PO Q8H PRN 7 days Tobacco use date assessed: 01/23/25 Dental Screening Dental Screen Date: 11/10/24 HPI Rash , itchy HPI Details 54-year-old female with past medical his tory of hypertension, lumbar disc disease, fibromyalgia last seen by ANGELICA 11/19 coming in for acute problem. Presenting with a body-wide rash and itching. Onset of itchy sensations occurred on Thursday followed by the development of bumps on Thursday. Rash affects multiple body areas, including the abdomen, legs, arms, and buttocks. New detergent use was noted, but no definite correlation to rash onset was confirmed. Recent antibiotic use occurred two weeks ago, but no other new medications or foods were reported. The rash and itching are severe enough to have warranted medical attention. [facility] Medical History Family history of breast cancer in first degree relative Numbness in left leg Sciatica Gallstones History of palpitations Lower back pain High blood pressure Surgical History Hx of cholecystectomy No pertinent past surgical history Family History Father Stroke Hypertension Mother Hypertension Sister Breast cancer, Onset Age: 45 Family/Other Alcoholism Social History Housing: Apartment Are you a primary medical care manager to a significant other at home: No Do you presently have visiting nurse or other home services: No Alcohol intake: current Alcohol intake frequency: a few times a month Patient Tobacco Use Status: Never used Tobacco e-Cigarette/Vaping Use: Never Used Second Hand Smoke Exposure: No service: No Current occupational status: unemployed Cognitive needs: No Hearing needs: No Vision needs: No Questionnaire Thrive Questionnaire Date Thrive assessed: 11/10/24 MARIA VICTORIA-7 AMB Questionnaire MARIA VICTORIA-7 Date MARIA VICTORIA - 7 assessed: 11/10/24 Source: Developed by Drs. Julien Pruitt, Marina Rene, Jovan Perez and colleagues, with an educational good from [employer]. Review of Systems Const Denies body aches, Denies chills, Denies fever(s), Denies headache(s) and Denies poor appetite Eyes Reports no additional complaints ENT Denies dizziness and Denies headache(s) Card Denies chest pain and Denies dyspnea Resp Denies cough and Denies dyspnea GI Reports no additional complaints Reports no additional complaints Musc Reports no additional complaints and Denies abnormal gait Skin/Breast Reports system reviewed and no additional complaints, except as documented Neuro Denies abnormal gait, Denies dizziness and Denies headache(s) Psych Reports no additional complaints Physical exam (Primary Care) Tobacco/Smoking Status: Tobacco use Status Tobacco use date assessed 11/10/24 12/01/24 09:24 Patient Tobacco Use Status Never used Tobacco 12/01/24 09:24 e-Cigarette/Vaping Use Never Used 12/01/24 09:24 Thrive Assessment: Date of Thrive Assessment Date Thrive assessed 11/10/24 12/01/24 09:24 Const General: cooperative, healthy appearing, comfortable and no acute distress Orientation/consciousness: patient oriented x3 HENMT Head: Yes normocephalic Ears: hearing grossly normal bilaterally General nose exam: Normal external nose present Eyes General: appearance normal, both eyes and all related structures Conjunctivae: conjunctivae normal Neck Neck: Yes full ROM and Yes no lymphadenopathy Resp Effort & Inspection: normal respiratory effort Auscultation: clear to auscultation bilaterally, no crackles, no rales, no rhonchi and no wheezes Cardio Rate: regular rate Rhythm: regular rhythm Skin Other: erythematous wheals in patches on abdomen, back, arms, neck and legs Neuro General: patient oriented x3 Gait exam (Neuro): Normal gait present Extrem General: Yes normal to inspection, Yes full ROM and No edema Psych Affect: normal affect Attitude: cooperative Insight: Good insight present (Psych) Judgement: Good judgement present (Psych) Coding Level of Care Code Est Pt Level 3 (79107) Diagnoses Urticaria L50.9 Assessment & Plan Assessment & Plan (1) Urticaria: Code(s): L50.9 - Urticaria, unspecified Category: Medical Plan: The patient is diagnosed with an allergic reaction and will be treated with a course of prednisone to reduce inflammation and hydroxyzine for itching relief. The hydroxyzine is noted for sedative properties and the patient has been cautioned against driving while on the medication. Management includes switching back to the previous detergent if applicable, and carefully evaluating new exposures. The introduction of fexofenadine (La) will follow the completion of hydroxyzine treatment to prevent recurrence of symptoms. Close monitoring for specific allergens, possibly related to the detergent change or other exposures, is advised. The patient is encouraged to maintain a log of foods, medications, and products in case of future symptom recurrences. Plan This note was constructed using voice recognition software. While every effort has been made to ensure accuracy and chief bank examiner, still areas may have been included sometimes these areas may affect the content or meeting of the given symptoms. Total time spent caring for the patient today was 20 minutes. This includes time spent before the visit reviewing the chart, time spent during the visit, and time spent after the visit and documentation. Patient was informed and verbally consented to the use of an ambient scribe for clinic note documentation during this visit. Medications: New hydroxyzine HCl 25 mg PO BEDTIME 20 tabs 0RF fexofenadine (La Allergy) 180 mg PO DAILY 90 tabs 0RF prednisone Take 4 tablets on days 1-2, take 3 tablets on days 3-4, take 2 tablets on days 5-6, take 1 tablet on days 7-8. 10 mg PO DIRECTED 20 tabs 0RF Discontinued nitrofurantoin monohyd/m-cryst 100 mg (Macrobid) Discontinued Reason: Patient no longer taking 100 mg PO BID 5 days 10 caps 0RF
[2025-01-23 10:54] VITALS: BP 120/60; PULSE 83; TEMP 36.4; O2SAT 99; BMI 25.4
--- OUTSIDE RECORDS SUMMARY | 2025-01-23 12:10 | XMS_ITS | Clinical Summary ---
Author Organization [facility] Address [address] [place] [address] Care Team Providers Care Utilization Review Nurse Name Role Phone Yung Phillips MD Primary [...] age to complete this topic Care Teams Utilization Review Nurse Relationship Specialty Start Date End Date Yung Phillips MD [address] [place] [address] PCP - General Internal Medicine 12/25/16
--- OUTSIDE RECORDS SUMMARY | 2025-01-23 12:10 | XMS_ITS | Clinical Summary ---
Author Organization [facility] Address [address] [place] [address] Care Team Providers Care Clinical Radiologist Name Role Phone Unavailable Primary Care Provider [...]
== END 2025-01-23 11:33 | disposition home or self-care (01) ==
LOC: HO.HMCH 10:46
PROVIDERS: PCP Physician Assistant
DX: L50.9 Urticaria, unspecified (principal)

== ENCOUNTER → 2025-01-23 10:45 | Outpatient (BNVA) | payer OTHER, SELFPAY | PROVIDERS: PCP Physician Assistant | DX: L50.9 Urticaria, unspecified (principal) | CPT/HCPCS: 99212 ==

== ENCOUNTER 2025-01-26 09:43 | Outpatient (AMB) | payer OTHER, SELFPAY ==
--- NOTE | 2025-01-26 09:45 | AM.OFFWIN_ITS ---
Intake Vital Signs 01/26/25 09:46 Weight 147 lb BP 120/80 Blood Pressure Location Rt brachial Position Sitting Pulse 75 Pulse Source Pulse Oximeter Pulse Oximetry (%) 98 Oxygen Delivery Method Room Air Intake Visit Reasons: EP Rash from head to toe Intake Note: Patient here for for rash all over body that has been present since thursday. Patient Tobacco Use Status: Never used Tobacco Allergies No Known Allergies Allergy (Verified 01/26/25 09:47) Do you need a note to return to daycare/school/sports/work: No HPI HPI Comments History of Present Illness Details 54 y/o Female patient who presents to [facility] with Rash that is very itchy covering her entire body. Reports that noticed the rash Thursday. She was seen Thursday for this and was prescribed Prednisone, Hydroxyzine and Allergra with no relief. Pt reports using different Detergent soaps for laundry, but denies that being the cause of the rash. She does not use specific one Bathing soap, usually buys them from [employer]. Pt does not think changes to her detergents, or bathing soaps caused the rash. Denies changes to her Cosmetic products, Diet, or medications. She completed Abx more than 2 weeks ago. Denies SOB, facial edema etc PFSH Medical History Family history of breast cancer in first degree relative Numbness in left leg Sciatica Gallstones History of palpitations Lower back pain High blood pressure Surgical History Hx of cholecystectomy No pertinent past surgical history Family History Father Stroke Hypertension Mother Hypertension Sister Breast cancer, Onset Age: 45 Family/Other Alcoholism Social History Housing: Apartment Are you a primary healthcare technician to a significant other at home: No Do you presently have visiting nurse or other home services: No Alcohol intake: current Alcohol intake frequency: a few times a month Patient Tobacco Use Status: Never used Tobacco e-Cigarette/Vaping Use: Never Used Second Hand Smoke Exposure: No service: No Current occupational status: unemployed Cognitive needs: No Hearing needs: No Vision needs: No Review of Systems Const All systems reviewed & are unremarkable except as noted in HPI and below Physical Exam Vital Signs: Last Vital Signs Pulse 75 01/26/25 09:46 BP 120/80 01/26/25 09:46 Pulse Ox 98 01/26/25 09:46 Oxygen Delivery Method Room Air 01/26/25 09:46 Const General: no acute distress Orientation/consciousness: patient oriented x3 HEENT Face and sinus: Yes normal facial exam, Yes sinuses nontender, No erythema and No edema Mouth: moist mucous membranes Throat: Yes uvula midline Eyes Eyelids: Yes eyelid abnormality (right upper eyelid swollen) Skin Other: Erythematous Hives noted torso, back, upper arms, and lower legs Rashes: rashes noted Neuro General: patient oriented x3, gait normal and moves all extremities Psych Speech and movement: Normal speech and movement present Affect: Anxious affect present Assessment & Plan Assessment & Plan (1) Urticaria: Code(s): L50.9 - Urticaria, unspecified Plan: Advised Patient to go to the ED for further management. Coding Level of Care Code Est Pt Level 4 (88048) Diagnoses Urticaria L50.9 Time Spent (min) 20
[2025-01-26 09:46] VITALS: BP 120/80; PULSE 75; O2SAT 98
--- OUTSIDE RECORDS SUMMARY | 2025-01-26 10:12 | XMS_ITS | Clinical Summary ---
Author Organization [facility] Address [address] [place] [address] Care Team Providers Care Real Estate Agency Licensee Name Role Phone Unavailable Primary Care Provider [...]
--- OUTSIDE RECORDS SUMMARY | 2025-01-26 10:12 | XMS_ITS | Clinical Summary ---
Author Organization [facility] Address [address] [place] [address] Care Team Providers Care Supervisor Edging Name Role Phone Yung Phillips MD Primary [...] age to complete this topic Care Teams Supervisor Edging Relationship Specialty Start Date End Date Yung Phillips MD [address] [place] [address] PCP - General Internal Medicine 12/25/16
== END 2025-01-26 10:37 | disposition home or self-care (01) ==
PROVIDERS: PCP Physician Assistant; Visit Provider Nurse Practitioner Family
DX: L50.9 Urticaria, unspecified (principal)

== ENCOUNTER → 2025-01-26 09:43 | Outpatient (BNVA) | payer OTHER, SELFPAY | PROVIDERS: PCP Physician Assistant; Visit Provider Nurse Practitioner Family | DX: L50.9 Urticaria, unspecified (principal) | CPT/HCPCS: 99212 ==

== ENCOUNTER 2025-01-26 11:14 | Emergency (ER) | payer OTHER, SELFPAY ==
[2025-01-26 11:22] VITALS: BP 130/59; PULSE 77; RESP 20; TEMP 36.5; O2SAT 100; BMI 25.5
--- NOTE | 2025-01-26 11:25 | ED_ITS ---
HPI - General Adult General Chief complaint: Allergic Reaction Stated complaint: rash all over Time Seen by Provider: 01/26/25 11:28 Source: patient, RN notes reviewed and old records reviewed Mode of arrival: ambulatory Limitations: no limitations History of Present Illness ED Provider: Sofia ORTIZ narrative: Patient is a 54-year-old female presenting to the emergency department with co mplaint of pruritic rash to extremities and trunk since Thursday. Was seen at urgent care and started on a tapering course of prednisone, hydroxyzine at night, has also been taking Benadryl without improvement. Reports the rash is extremely pruritic. Denies any shortness of breath or difficulty breathing. Denies any angioedema or difficulty swallowing. Denies any abdominal pain, nausea, vomiting, diarrhea. Denies recent fevers or other systemic symptoms. Unknown contact with any known allergens. MD complaint: rash Onset (ago): day(s) Related Data Previous Rx's ?Medication ?Instructions ?Recorded acetaminophen 650 mg 650 mg PO Q12H 30 days #60 tabs 08/05/24 tablet,extended release gabapentin 600 mg tablet 600 mg PO BID 30 days #60 tabs 09/05/24 ibuprofen 800 mg tablet 800 mg PO TID PRN Pain 30 days #90 10/02/24 tabs tramadol 50 mg tablet 50 mg PO Q8H PRN pain 7 days #21 10/17/24 tabs qhezrcfk-jmbncnk-vwyz-lutein tablet 1 tab PO DAILY #90 tabs 11/09/24 lisinopril 20 1 tab PO DAILY 90 days #90 tabs 01/16/25 mg-hydrochlorothiazide 12.5 mg tablet fexofenadine 180 mg tablet 180 mg PO DAILY #90 tabs 01/23/25 (Faustino Allergy) hydroxyzine HCl 25 mg tablet 25 mg PO BEDTIME #20 tabs 01/23/25 prednisone 10 mg tablet 10 mg PO DIRECTED #20 tabs 01/23/25 cetirizine 10 mg tablet 10 mg PO DAILY #30 tabs 01/26/25 famotidine 20 mg tablet 20 mg PO DAILY #14 tabs 01/26/25 Allergies Allergy/AdvReac Type Severity Reaction Status Date / Time No Known Allergies Allergy Verified 01/26/25 11:24 Review of Systems Review of Systems: As per HPI Yes all other systems are reviewed and are negative Constitutional: Constitutional: Reports as per HPI PMFSH Past Medical History Medical History Family history of breast cancer in first degree relative Numbness in left leg Sciatica Gallstones History of palpitations Lower back pain High blood pressure Surgical History Hx of cholecystectomy No pertinent past surgical history Family History Family History Father Stroke Hypertension Mother Hypertension Sister Breast cancer, Onset Age: 45 Family/Other Alcoholism Social History Social History Housing: Apartment Are you a primary family day care provider to a significant other at home: No Do you presently have visiting nurse or other home services: No Alcohol intake: current Alcohol intake frequency: a few times a month Patient Tobacco Use Status: Never used Tobacco e-Cigarette/Vaping Use: Never Used Second Hand Smoke Exposure: No Advance Directives: No Advance Directives Information Provided: No Do you have a plan to hurt others: No Plan service: No Current occupational status: unemployed Cognitive needs: No Hearing needs: No Vision needs: No Physical Exam ED Vital Signs: Vital Signs - 24 hr 01/26/25 11:22 01/26/25 11:59 Temperature 97.7 F 97.7 F Pulse Rate 77 77 Respiratory Rate 20 20 Blood Pressure 130/59 L 130/59 L Pulse Oximetry 100 100 Oxygen Delivery Method Room Air Room Air BMI result Body Mass Index 25.5 Vital signs have been reviewed and appear to be correct. Blood pressure normal. Heart rate normal. Respiratory rate normal. Temperature normal. Oxygen saturation normal. Const General: cooperative, healthy appearing and no acute distress Orientation/consciousness: oriented to person, oriented to place, oriented to time and patient oriented x3 Limitations: no limitations HENMT Head: Yes normocephalic and Yes atraumatic Ears: external ears normal General nose exam: Normal external nose present Face and sinus: Yes face symmetric Mouth: lip normal, tongue normal, oropharynx normal, moist mucous membranes, no audible dysphonia, no drooling and no trismus Throat: Yes uvula midline and No uvular edema Eyes Pupils: Equal, round and reactive pupils present Neck Neck: Yes normal visual inspection and Yes supple Resp Effort & Inspection: normal respiratory effort and able to speak in complete sentences Auscultation: clear to auscultation bilaterally Cardio Rate: regular rate Rhythm: regular rhythm Heart sounds: S1 normal heart sound present and S2 normal heart sound present GI Palpation (GI): Soft to palpation and nontender Auscultation: normoactive bowel sounds General: Yes no CVA tenderness Back/Spine/Pelvis Back: no CVA tenderness Skin General skin exam: elasticity normal and turgor normal Rashes: rashes noted urticaria diffuse Neuro General: oriented to person, oriented to place, oriented to time, patient oriented x3, moves all extremities, no focal motor deficits and CN's II-XI intact bilaterally Cranial nerves: Yes Equal, round and reactive pupils present Cognition (Neuro): normal cognition Extrem General: Yes full ROM, Yes no pedal edema and Yes no calf tenderness Psych Mental Status: mental status grossly normal Affect: normal affect Thought process: Normal thought process present Medications Administered Discontinued Medications Generic Name Dose Route Start Last Admin Trade Name Dmitriyq PRN Reason Stop Dose Admin Famotidine 20 mg 01/26/25 11:32 01/26/25 11:40 Famotidine 20 Mg Tablet PO 01/26/25 11:33 20 mg ONCE ONE Administration Medical Decision Making Medical Decision Making [facility] Narrative: Patient is a 54-year-old female presenting to the emergency department with complaint of pruritic rash to extremities and trunk since Thursday. On exam patient is awake, A+Ox3, VS WNL, afebrile, normal neurological exam without focal deficits, physical exam findings as above. Given reported symptoms and physical exam findings, initial differential includes but is not limited to urticaria, contact dermatitis. do not suspect anaphylaxis. Do not suspect TEN/SJS, DRESS, TTP/DIC, necrotizing fasciitis, meningococcemia, SSSS, TSS, anaphylaxis. Patient medicated with famotidine in the ED. Will Discharge patient on famotidine and cetirizine, advised her to complete course of prednisone taper as well as hydroxyzine at night. Discussed with patient that she should not take any other antihistamines while taking the cetirizine. Advised her to avoid extremes in temperature when showering, can apply a thick and scented lotion to affected areas. Follow up with PCP as needed. Will refer to Dermatology for ongoing symptoms. Return precautions discussed. Patient verbalized understanding of and agreement with plan. Differential Diagnosis Differential Diagnoses: The differential diagnosis associated with the presentation includes As per [facility] External Record Review External record reviewed: Inpatient record, Office record and Outpatient record Prescription Management I considered prescription management with: Other Discharge Plan Discharge Clinical Impression: Urticaria Patient Disposition: Home, Self-Care Instructions: Urticaria (ED), Acute Rash (ED) Additional Instructions: You were evaluated in the emergency department today for a rash. Your evaluation did not reveal evidence of conditions requiring emergent medical treatment. Continue to complete the full course of medications already prescribed to you (prednisone and hydroxyzine). We are prescribing famotidine which is an antihistamine. We are prescribing Zyrtec (cetirizine) which is a different type of antihistamine. DO NOT TAKE BENADRYL, FAUSTINO, or CLARITIN in combination with the ZYRTEC. You can apply a thick unscented lotion to the affected areas such as Eucerine or Vanicream several times daily. Follow up with your primary care provider this week. If your symptoms do not improve, follow up with a head of art. Return to the emergency department if you develop difficulty breathing or shortness of breath, swelling to lips, tongue, fever, rash inside your mouth or to your palms/soles or any other concerning symptoms. Prescriptions: New cetirizine 10 mg tablet 10 mg PO DAILY Qty: 30 0RF Rx Instructions: Start by taking 1 tab (10mg) in the morning. If symptoms persist, you can increase to 1 tab in the am and 1 tab in the pm. If symptoms continue, you can increase up to 2 tabs (20mg) in the am and 2 tabs in the pm. DO NOT EXCEED 40mg (4tabs) daily. famotidine 20 mg tablet 20 mg PO DAILY Qty: 14 0RF No Action acetaminophen 650 mg tablet extended release 650 mg PO Q12H 30 Days Qty: 60 2RF gabapentin 600 mg tablet 600 mg PO BID 30 Days Qty: 60 3RF ibuprofen 800 mg tablet 800 mg PO TID PRN (Reason: Pain) 30 Days Qty: 90 1RF tramadol 50 mg tablet 50 mg PO Q8H PRN (Reason: pain) 7 Days Qty: 21 1RF lisinopril-hydrochlorothiazide 20-12.5 mg tablet 1 tab PO DAILY 90 Days Qty: 90 1RF hydroxyzine HCl 25 mg tablet 25 mg PO BEDTIME Qty: 20 0RF fexofenadine [Faustino Allergy] 180 mg tablet 180 mg PO DAILY Qty: 90 0RF prednisone 10 mg tablet 10 mg PO DIRECTED Qty: 20 0RF Rx Instructions: Take 4 tablets on days 1-2, take 3 tablets on days 3-4, take 2 tablets on days 5-6, take 1 tablet on days 7-8. kffahofk-ewjjknr-sixq-lutein Tablet 1 tab PO DAILY Qty: 90 4RF Referrals: [facility] [Provider Group] [facility] [Provider Group] [facility] [Provider Group] [facility] [Provider Group] Interventions: ED Discharge Assessment Last Done: 01/26/25 11:59 Discharge Date/Time: 01/26/25 11:59 Print Language: Romanian
[2025-01-26] MEDS: Famotidine 20 MG TABLET PO (11:40)
[2025-01-26 11:59] VITALS: BP 130/59; PULSE 77; RESP 20; TEMP 36.5; O2SAT 100
--- NOTE | 2025-01-26 11:59 | PC.NURSE ---
pt dc from triage by provider
--- OUTSIDE RECORDS SUMMARY | 2025-01-26 12:54 | XMS_ITS | Clinical Summary ---
Author Organization [employer] [facility] Address [address] [place] [address] Care Team Providers Care Section Gang Name Role Phone Yung Phillips MD Primary [...] age to complete this topic Care Teams Section Gang Relationship Specialty Start Date End Date Yung Phillips MD [address] [place] [address] PCP - General Internal Medicine 12/25/16
--- OUTSIDE RECORDS SUMMARY | 2025-01-26 12:54 | XMS_ITS | Clinical Summary ---
Author Organization [facility] Address [address] [place] [address] Care Team Providers Care Small Piece Cutter Name Role Phone Unavailable Primary Care Provider [...]
== END 2025-01-26 11:59 | disposition home or self-care (01) ==
PROVIDERS: Emergency Provider Emergency Medicine; PCP Physician Assistant
DX: R21 Rash and other nonspecific skin eruption (principal); L50.9 Urticaria, unspecified
CPT/HCPCS: 99282; 99283

== ENCOUNTER 2025-01-27 10:46 | Outpatient (REF) | payer OTHER, SELFPAY ==
--- OUTSIDE RECORDS SUMMARY | 2025-01-27 13:47 | XMS_ITS | Clinical Summary ---
Author Organization [employer] [facility] Address [address] [place] [address] Care Team Providers Care Emergency Planning And Response Manager Name Role Phone Yung Phillips MD Primary [...] age to complete this topic Care Teams Emergency Planning And Response Manager Relationship Specialty Start Date End Date Yung Phillips MD [address] [place] [address] PCP - General Internal Medicine 12/25/16
--- OUTSIDE RECORDS SUMMARY | 2025-01-27 13:47 | XMS_ITS | Clinical Summary ---
Author Organization [facility] Address [address] [place] [address] Care Team Providers Care Shop Service Technician Name Role Phone Unavailable Primary Care Provider [...]
== END 2025-01-27 10:47 | disposition home or self-care (01) ==
LOC: HO.LNP 10:46
PROVIDERS: PCP Physician Assistant; Visit Provider Obstetrics & Gynecology
DX: R31.29 Other microscopic hematuria (principal)
CPT/HCPCS: 87086; 99212

== ENCOUNTER 2025-01-27 10:46 | Outpatient (AMB) | payer OTHER, SELFPAY ==
--- NOTE | 2025-01-27 11:21 | MHC.OFFVIS ---
Intake Visit Reasons: urine dip Animation Producer: Animation Producer Present (Tonia) Accompanied by: Self / Same As Patient Allergies No Known Allergies Allergy (Verified 01/27/25 11:21) HPI Comments Details: Presenting for repeat urine dip. Last urine dip showed microscopic hematuria, urine culture grew E coli sensitive to nitrofurantoin, the patient completed 5 day course of nitrofurantoin. The patient is doing well with no complaints no urinary symptoms fever or chills or flank pain. PFSH Medical History Family history of breast cancer in first degree relative Numbness in left leg Sciatica Gallstones History of palpitations Lower back pain High blood pressure Surgical History Hx of cholecystectomy No pertinent past surgical history Family History Father Stroke Hypertension Mother Hypertension Sister Breast cancer, Onset Age: 45 Family/Other Alcoholism Social History Housing: Apartment Are you a primary urgent care technician to a significant other at home: No Do you presently have visiting nurse or other home services: No Alcohol intake: current Alcohol intake frequency: a few times a month Patient Tobacco Use Status: Never used Tobacco e-Cigarette/Vaping Use: Never Used Second Hand Smoke Exposure: No service: No Current occupational status: unemployed Cognitive needs: No Hearing needs: No Vision needs: No Review of Systems Const All systems reviewed & are unremarkable except as noted in HPI and below Reports as per HPI and Reports no additional complaints GI Reports no additional complaints Reports no additional complaints Assessment & Plan Assessment & Plan (1) Microscopic hematuria: Code(s): R31.29 - Other microscopic hematuria Category: Medical Plan: Discussed with the patient the finding on urine dip showing microscopic hematuria. Will repeat urine culture and instructions given the patient to schedule a 2 week follow-up appointment for repeat urine dip. All questions answered, the patient verbalized understanding Coding Level of Care Code Est Pt Level 3 (78706) Diagnoses Microscopic hematuria R31.29
--- OUTSIDE RECORDS SUMMARY | 2025-01-27 12:24 | XMS_ITS | Clinical Summary ---
Author Organization [employer] [facility] Address [address] [place] [address] Care Team Providers Care Veneer Production Machine Operator Name Role Phone Yung Phillips MD Primary [...] age to complete this topic Care Teams Veneer Production Machine Operator Relationship Specialty Start Date End Date Yung Phillips MD [address] [place] [address] PCP - General Internal Medicine 12/25/16
== END 2025-01-27 11:28 | disposition home or self-care (01) ==
LOC: HO.HWS 10:46
PROVIDERS: PCP Physician Assistant; Visit Provider Obstetrics & Gynecology
DX: R31.29 Other microscopic hematuria (principal)
CPT/HCPCS: 99213

== ENCOUNTER 2025-05-16 13:43 | Outpatient (AMB) | payer OTHER, SELFPAY ==
--- NOTE | 2025-05-16 13:53 | MHC.PC.OV ---
Vital Signs 05/16/25 13:55 Height 5 ft 4 in Weight 148 lb 8 oz BMI 25.5 BP 110/60 Blood Pressure Location Lt brachial Position Sitting Pulse 80 Pulse Source Pulse Oximeter Temp 97.1 F Temp Source Temporal Artery Scan Pulse Oximetry (%) 98 Oxygen Delivery Method Room Air Intake Visit Reasons: PE R/S from 05/11/25 Intake Note: Patient is here for an Annual Wellness Visit. Electronic Instrument Trades Worker Required: No Lozenge Maker: Not Required per policy Accompanied by: Self / Same As Patient Allergies No Known Allergies Allergy (Verified 05/16/25 14:08) Medication List - Last Reconciled 05/16/25 by Se Miguel PA-C acetaminophen ER 650 mg PO Q12H 30 days gabapentin 600 mg PO BID 30 days ibuprofen 800 mg PO TID PRN 30 days lisinopril-hydrochlorothiazide 20-12.5 mg 1 tab PO DAILY 90 days jbvgqcyd-nwtybnr-wvfq-lutein 1 tab PO DAILY tramadol 50 mg PO Q8H PRN 7 days Tobacco use date assessed: 05/16/25 Dental Screening Dental Screen Date: 11/10/24 HPI PE R/S from 05/11/25 HPI Details Patient is a 54 year-old female here today for a routine annual physical Patient has a past medical history significant for hypertension, chronic lumbar spine pain. Concern--> The patient had a rash on her scalp, which she attributes to a new shampoo used at home. The rash was severe and spread to other parts of her body, but she has since discontinued the use of the shampoo. The patient reports a tender area on her scalp that has been present for three weeks. She denies any trauma to the area and notes that it is painful upon touch. There are no visible lumps or lesions, and an x-ray of the skull is considered for further evaluation. ?Lumbar spine pain:? Continues with the use of gabapentin, p.r.n. use of tramadol and acetaminophen. She reports her lumbar spine pain is fairly stable. She does report getting cortisone injections in her lumbar spine in the past at had helped temporarily. She denies ever having physical therapy for her lumbar spine pain.? X-rays knees and back were normal. ?? Fibromyalgia .. Hypertension:? Blood pressure has been stable. She does not check her blood pressure at home.? Otherwise denies any chest discomfort, headaches, shortness of breath. Colon cancer screening: Awaiting colonoscopy mammmo: October 2024- BIRADS 3 - 6 month follow up EXECUTIVE ASSISTANT TO GENERAL COUNSEL: followed by EXECUTIVE ASSISTANT TO GENERAL COUNSEL here in [place] - has had abnormal Pap and has gotten cervical biopsy without evidence of malignancy- Vaccines up-to-date COVID vaccine, tetanus vaccine, considering shingles vaccine PFSH Medical History (Updated 05/17/25 @ 07:52 by Se Miguel PA-C) Family history of breast cancer in first degree relative Numbness in left leg Sciatica Gallstones History of palpitations Lower back pain Surgical History Hx of cholecystectomy No pertinent past surgical history Family History Father Stroke Hypertension Mother Hypertension Sister Breast cancer, Onset Age: 45 Family/Other Alcoholism Social History Housing: Apartment Are you a primary behavioral health care coordinator to a significant other at home: No Do you presently have visiting nurse or other home services: No Alcohol intake: current Alcohol intake frequency: a few times a month Patient Tobacco Use Status: Never used Tobacco e-Cigarette/Vaping Use: Never Used Second Hand Smoke Exposure: No service: No Current occupational status: unemployed Cognitive needs: No Hearing needs: No Vision needs: No Questionnaire Thrive Questionnaire Date Thrive assessed: 05/09/25 I am a: Patient What is your living situation today?: I have a steady place to live Within the past 12 months, did the food you bought not last and you didn't have the money to get more?: Sometimes True Within the past 12 months, did you worry whether your food would run out before you got money to buy more?: Sometimes True Do you have trouble paying for medicines?: No Do you have trouble getting transportation to medical appointments?: Yes Do you have trouble paying your heating and electricity bill?: Yes Do you have trouble taking care of your child, family member or friend?: No Do you have trouble with day-to-day activities such as bathing, preparing meals, shopping, managing finances, etc.?: Yes Are you currently unemployed and looking for a job?: Yes Are you interested in more education?: No Currently or been in a relationship where the following occur: I choose not to answer THRIVE Score: 4 AUDIT C Alcohol Use Questionnaire (AUDIT-C) 1. How often do you have a drink containing alcohol?: Monthly or less 2. How many drinks containing alcohol do you have on a typical day when you are drinking?: 3 or 4 3. How often do you have six or more drinks on one occasion?: Less than monthly Total Score: 3 MARIA VICTORIA-7 AMB Questionnaire MARIA VICTORIA-7 Date MARIA VICTORIA - 7 assessed: 05/16/25 Feeling nervous, anxious, or on edge: 1 = Several days Not being able to stop or control worryin = Several days Worrying too much about different things: 1 = Several days Trouble relaxin = Several days Being so restless that it is hard to sit still: 0 = Not at all Becoming easily annoyed or irritable: 0 = Not at all Feeling afraid as if something awful might happen: 0 = Not at all Total MARIA VICTORIA-7 score (0-4 normal; 5-9 mild; 10-14 moderate; 15-21 severe): 4 Source: Developed by Drs. Julien Pruitt, Marina Rene, Jovan Perez and colleagues, with an educational good from [employer]. Review of Systems Const Denies body aches, Denies chills, Denies excessive sweating, Denies fatigue, Denies fever(s) and Denies headache(s) Eyes Denies blurry vision ENT Denies dysphagia, Denies vertigo, Denies dizziness, Denies headache(s), Denies hearing loss and Denies tinnitus Card Denies chest pain, Denies chest pain with activity, Denies syncope, Denies irregular heart rhythm and Denies dyspnea Resp Denies chest congestion, Denies cough, Denies hemoptysis, Denies dyspnea and Denies wheezing GI Denies abdominal pain, Denies melena, Denies hematochezia, Denies coffee ground emesis, Denies dysphagia, Denies diarrhea, Denies nausea and Denies vomiting Denies urinary frequency, Denies dysuria, Denies urinary hesitancy and Denies urinary urgency Musc Denies arthralgias, Denies limited range of motion, Denies muscle cramps and Denies muscle weakness Skin/Breast Denies rash and Denies skin ulcer Neuro Denies Abnormal speech present, Denies confusion, Denies vertigo, Denies dizziness, Denies syncope, Denies headache(s), Denies memory loss and Denies seizure-like activity Psych Denies anxiety, Denies confusion, Denies depression, Denies memory loss, Denies panic attacks and Denies paranoia Endo Denies excessive sweating, Denies fatigue, Denies flushing, Denies polydipsia and Denies polyuria Aller/Immun Denies wheezing Physical exam (Primary Care) Vital Signs: Last Vital Signs Temp 97.1 F 05/16/25 13:55 Pulse 80 05/16/25 13:55 BP 110/60 05/16/25 13:55 Pulse Ox 98 05/16/25 13:55 Oxygen Delivery Method Room Air 05/16/25 13:55 BMI result Body Mass Index 25.5 Tobacco/Smoking Status: Tobacco use Status Tobacco use date assessed 05/16/25 05/16/25 14:00 Patient Tobacco Use Status Never used Tobacco 05/16/25 14:00 e-Cigarette/Vaping Use Never Used 05/16/25 14:00 Thrive Assessment: Date of Thrive Assessment Date Thrive assessed 05/09/25 05/16/25 14:00 Currently or been in a relationship where the following occur: I choose not to answer Const General: cooperative, comfortable, no acute distress, alert and awake; No confusion Orientation/consciousness: oriented to person, oriented to place, patient oriented x3 and No confusion HENMT Head: Yes normocephalic Ears: external ears normal and TM's normal bilaterally Face and sinus: No sinus tenderness Mouth: Normal oral and palatal mucosa present and tongue normal Teeth and gingiva: dentition normal and gingiva normal Throat: Yes posterior oropharynx normal, Yes tonsils normal and Yes uvula midline Eyes Conjunctivae: conjunctivae normal Sclerae: sclerae normal Pupils: Equal, round and reactive pupils present EOM: EOMs intact bilaterally Direct Ophthalmoscopy: No no photophobia Neck Neck: Yes no lymphadenopathy, No tender and Yes no JVD Thyroid: Thyroid normal Carotids: no bruits Chest Chest palpation & inspection: no tenderness Resp Effort & Inspection: normal respiratory effort, no audible wheezes, not labored and no stridor Auscultation: no crackles, no rales, no rhonchi and no wheezes Cardio Jugular venous distension: no JVD Rate: regular rate, not bradycardic and not tachycardic Rhythm: regular rhythm Bruits: no carotid bruits Peripheral pulses: Peripheral pulses 2+ throughout GI Inspection: Yes normal to inspection, No abdominal wall ecchymosis and No visible herniation Palpation (GI): Soft to palpation, nontender, no guarding, not rigid and No hepatosplenomegaly present Auscultation: normoactive bowel sounds General: Yes no CVA tenderness Back/Spine/Pelvis Back: no CVA tenderness and No back tenderness Cervical Spine: cervical ROM normal Thoracic/Lumbar Spine: thoracic and lumbar spine normal to inspection, straight leg raise negative bilaterally, No thoraco-lumbar ROM limited and No lumbar spinal tenderness Skin Lesions: no lesions Rashes: no rashes Wounds: no wounds Neuro General: oriented to person, oriented to place, patient oriented x3, CN's II-XI intact bilaterally and No confusion Cranial nerves: Yes Equal, round and reactive pupils present and Yes Normal accommodation reflex present Cognition (Neuro): normal cognition Speech: No Abnormal speech present Gait exam (Neuro): Normal gait present Motor exam (neuro): 5/5 motor strength present throughout Extrem Right upper extremity: full ROM; no cyanosis Left upper extremity: full ROM; no cyanosis Right lower extremity: no edema Left lower extremity: no edema Psych Appearance: grossly normal Mental Status: mental status grossly normal Affect: normal affect Attitude: cooperative Thought process: Normal thought process present Coding Level of Care Code Est Pt Prev Care 40-64y(19562) Diagnoses Annual physical exam Z00.00 Primary hypertension I10 Hypertension type: primary hypertension Acute low back pain without sciatica, unspecified back pain laterality M54.5 Back pain laterality: unspecified Chronicity: acute Sciatica presence: without sciatica Abnormal mammogram R92.8 Scalp pain R51.9 Assessment & Plan Assessment & Plan (1) Annual physical exam: Code(s): Z00.00 - Encounter for general adult medical examination without abnormal findings Category: Medical Plan: As per HPI (2) HTN (hypertension): Code(s): I10 - Essential (primary) hypertension Category: Medical Qualifiers: Hypertension type: primary hypertension Qualified Code(s): I10 - Essential (primary) hypertension Plan: Patient's blood pressure acceptable today in office. Will continue her current dose of antihypertensive medication with goal blood pressure to remain below 140/90 (3) Lower back pain: Code(s): M54.5 - Low back pain Category: Medical Qualifiers: Back pain laterality: unspecified Chronicity: acute Sciatica presence: without sciatica Qualified Code(s): M54.5 - Low back pain Plan: Has chronic lower back pain and takes gabapentin with good effect. He is interested in increasing her gabapentin to 800 mg b.i.d.. Not interested in any physical therapy or pain management referral at this time. (4) Abnormal mammogram: Code(s): R92.8 - Other abnormal and inconclusive findings on diagnostic imaging of breast Category: Medical Plan: Has been noted to have abnormal mammograms with calcifications. Has gotten repeat mammogram with stable findings, repeat 12 months She continues on close monitoring with the mammograms. (5) Scalp pain: Code(s): R51.9 - Headache, unspecified Category: Medical Plan: Has noted scalp pain over the last month and a particular region in her scalp. Likely related to her rash that presented in the spring though was thought to be due to a new shampoo. Orders: Orders XR skull min 4V 05/16/25 R51.9 - Headache, unspecified Medications: New gabapentin 800 mg PO BID 60 tabs 2RF 30 days M51.16 - Intervertebral disc disorders with radiculopathy, lumbar region Discontinued gabapentin Discontinued Reason: Doctor's Order 600 mg PO BID 30 days 60 tabs 3RF M51.16 - Intervertebral disc disorders with radiculopathy, lumbar region Patient Instructions: Goal: Blood pressure to be below 140/90 Barriers: Adherence to physical activity and healthy eating habits
[2025-05-16 13:55] VITALS: BP 110/60; PULSE 80; TEMP 36.2; O2SAT 98; BMI 25.5
--- OUTSIDE RECORDS SUMMARY | 2025-05-16 14:54 | XMS_ITS | Clinical Summary ---
Author Organization [email or web address] Address [address] [place] [address] Care Team Providers Care Bottom Sander Name Role Phone Yung Phillips MD Primary [...] Panel) 11/29/2023 Colorectal Cancer Screening: Colonoscopy 11/29/2023 HIV Screening 11/29/2023 Hepatitis C Screening 11/29/2023 Hypertension/CHF/CAD Annual BMP Blood Test 11/29/2023 Social Influencers of Health Screening 11/29/2023 COVID-19 Vaccine ( - 2023-2 5 season) 2024 Depression Screening 10/26/2024 Influenza Vaccine (#1) 2025 HIB Vaccines Aged Out No longer eligi [...] age to complete this topic Meningococcal B Vaccine Aged Out No l onger eligible based on patient's age to complete this topic RSV Immunization Patients Un ronald 20 months Aged Out No longer eligible b ased on patient's age to complete this topic Varicella Vaccines Aged Out No longer eligible based on patient's age to complete this topic Care Teams Bottom Sander Relationship Specialty Start Date End Date Yung Phillips MD [address] [place] [id number] PCP - General Internal Medicine 12/25/16
--- OUTSIDE RECORDS SUMMARY | 2025-05-16 14:54 | XMS_ITS | Clinical Summary ---
Author Organization [employer] Address [address] [facility] [address] [place] [address] Care Team Providers Care Lead Pony Rider Name Role Phone Unavailable Primary Care Provider Unavailabl e Immunizations Immunization Administration Dates Next Due Pfizer Covid-19 Vaccine [...] Screening 1970 SDOH Screening 1970 Sigmoidoscopy 1970 Disability Screening 1970 Alcohol/Substance Use Screening 1982 Tobacco Screening 1982 Hepatitis C Screening 1988 Hepatitis B Vaccines (1 of 3 - 19+ 3-dose series) 1989 Pap Smear 1991 Cervical Cancer Screening 2000 HPV/Cotest 2000 Mammogram 2010 Pneumococcal Vaccine: 50+ Years (1 of 1 - PCV) 2020 Zoster Vaccines (1 of 2) 2020 COVID-19 Vaccine (4 - season) 2024 10/17/2022, 03/13/2021, 02/19/2021 Influenza Vaccine (#1) 2025 , 09/12/2019, 08/17/2014, Additional history exists DTaP/Tdap/Td [...] patient's age to complete this topic Insurance [address] [place], [place] [address]
== END 2025-05-16 15:00 | disposition home or self-care (01) ==
PROVIDERS: PCP Physician Assistant; Visit Provider Physician Assistant
DX: Z00.00 Encounter for general adult medical examination without abnormal findings (principal); I10 Essential (primary) hypertension; M54.50 Low back pain, unspecified; R92.8 Other abnormal and inconclusive findings on diagnostic imaging of breast; R51.9 Headache, unspecified

== ENCOUNTER → 2025-05-16 13:43 | Outpatient (BNVA) | payer OTHER, SELFPAY | PROVIDERS: PCP Physician Assistant; Visit Provider Physician Assistant | DX: Z00.00 Encounter for general adult medical examination without abnormal findings (principal); I10 Essential (primary) hypertension; M54.50 Low back pain, unspecified; R92.8 Other abnormal and inconclusive findings on diagnostic imaging of breast; R51.9 Headache, unspecified; M51.16 Intervertebral disc disorders with radiculopathy, lumbar region | CPT/HCPCS: 99396 ==

== ENCOUNTER 2025-06-23 12:54 | Outpatient (REF) | payer OTHER, SELFPAY ==
--- NOTE | ~2025-06-23 | XR_ITS ---
EXAMINATION: XR SKULL CLINICAL INFORMATION: R51.9 - Headache, unspecified COMPARISON: None available. TECHNIQUE: 5 views of the skull were obtained. FINDINGS: Calvarium is intact and unremarkable. There is no bony lesion detected. Paranasal sinuses appear grossly well pneumatized without opacification or air-fluid level present. Nasal septum is grossly midline. Orbits are intact. No radiopaque foreign body. The sella is normal in size. Mastoids are grossly pneumatized. No soft tissue abnormality noted. XR/XR skull min 4V IMPRESSION: Normal skull radiographs. Electronically signed by: Aneudy Rodriguez MD 06/23/2025 01:39 PM EDT
--- OUTSIDE RECORDS SUMMARY | 2025-06-23 13:20 | XMS_ITS | Clinical Summary ---
Author Organization [employer] Address [address] [facility] [address] [place] [address] Care Team Providers Care Teacher Dancing Name Role Phone Unavailable Primary Care Provider [...] patient's age to complete this topic Insurance [address] [place], [place] [address] C[employer]
--- OUTSIDE RECORDS SUMMARY | 2025-06-23 13:20 | XMS_ITS | Clinical Summary ---
Author Organization [employer] Address [address] [place] [address] Care Team Providers Care Slate Handler Name Role Phone Yung Phillips MD Primary [...] age to complete this topic Care Teams Slate Handler Relationship Specialty Start Date End Date Yung Phillips MD [address] [place] [id number] PCP - General Internal Medicine 12/25/16
== END 2025-06-23 12:55 | disposition home or self-care (01) ==
LOC: HO.XRAY 12:54
PROVIDERS: PCP Physician Assistant; Visit Provider Physician Assistant
DX: R51.9 Headache, unspecified (principal)
CPT/HCPCS: 70260

== ENCOUNTER → 2025-06-23 12:58 | Outpatient (BNV) | payer OTHER, SELFPAY | PROVIDERS: PCP Physician Assistant; Visit Provider Radiology Diagnostic Radiology | DX: R51.9 Headache, unspecified (principal) | CPT/HCPCS: 70260 ==

== ENCOUNTER 2025-06-24 21:03 | Emergency (ER) | payer OTHER, SELFPAY ==
--- NOTE | ~2025-06-24 | CT_ITS ---
CLINICAL HISTORY: appy rule out CT abdomen and pelvis with contrast Comparison: None provided Findings: No consolidation or effusion. The gallbladder is surgically absent. Mild intrahepatic biliary ductal dilatation likely related to cholecystectomy. Common bile duct within normal limits post cholecystectomy. Few hepatic and splenic granulomas consistent with healed granulomatous disease. The pancreas, adrenal glands and kidneys are unremarkable. No ureteral stones and no hydronephrosis or hydroureter. No perinephric stranding or perinephric fluid. No bowel obstruction, pneumoperitoneum, or pneumatosis. Normal appendix. No free fluid or loculated fluid collection. No adenopathy. Moderate stool in ascending and transverse colon. Pelvic contents unremarkable. Abdominal aorta is normal in size No acute fracture. IMPRESSION: 1. No acute findings. Normal appendix. This document has been electronically signed by: Grisel Suarez MD on 06/25/2025 00:19:52
[2025-06-24 21:06] VITALS: BP 156/73; PULSE 89; RESP 16; TEMP 37.6; O2SAT 100; BMI 25.2
--- OUTSIDE RECORDS SUMMARY | 2025-06-24 21:17 | XMS_ITS | Clinical Summary ---
Author Organization [employer] Address [address] [place] [address] Care Team Providers Care Service Specialist Name Role Phone Yung Phillips MD Primary [...] age to complete this topic Care Teams Service Specialist Relationship Specialty Start Date End Date Yung Phillips MD [address] [place] [id number] PCP - General Internal Medicine 12/25/16
--- OUTSIDE RECORDS SUMMARY | 2025-06-24 21:17 | XMS_ITS | Clinical Summary ---
Author Organization [employer] Address [address] [facility] [address] [place] [address] Care Team Providers Care Glass Furnace Operator Name Role Phone Unavailable Primary Care Provider [...] patient's age to complete this topic Insurance [address] [place], [place] [id number] C[employer]
[2025-06-24 21:22] LABS: MANUAL DIFF FLAG NO
[2025-06-24 21:24] LABS: Hematocrit 34.0 % (37.0-47.0); Hemoglobin 12.4 g/dl (12.0-16.0); Imm Gran Abs Auto 0.04 X10*3/uL (0.00-0.03); Imm Gran Pct Auto 0.3 % (0.0-0.4); Lymphocytes Absolute Auto 2.6 X10*3/uL (1.2-4.9); Mean Corpuscular HGB Conc 36.5 g/dl (31.0-35.0); Mean Corpuscular Hemoglobin 34.9 pg (27.0-33.0); Mean Corpuscular Volume 95.8 fL (80.0-98.0); NRBC Abs Auto 0.000 X10*3/uL (0.0-0.012); NRBC Pct Auto 0.0 /100WBC (0.0-0.2); Platelet Count 160 X10*3/uL (160-400); Red Blood Count 3.55 X10*6/uL (4.20-5.50); White Blood Count 12.2 X10*3/uL (4.8-10.8)
[2025-06-24 21:37] LABS: Alanine Aminotransferase 14 U/L (0-31); Albumin Level 4.4 g/dL (3.5-5.0); Alkaline Phosphatase 98 U/L (39-117); Anion Gap 14 (12-20); Aspartate Amino Transferase 23 U/L (5-31); Blood Urea Nitrogen 14 mg/dL (9-16); Calcium 9.0 mg/dL (8.4-10.2); Carbon Dioxide 23 mmol/L (22-29); Chloride 107 mmol/L (96-108); Creatinine Clr Calc Pharmacy 79.5; Estimated Glomerular Filt Rate > 60; Lipase 47 U/L (8-78); Magnesium 2.0 mg/dL (1.6-2.6); Potassium 3.7 mmol/L (3.3-5.1); Sodium 140 mmol/L (135-145); Total Protein 7.2 g/dL (6.5-8.0)
[2025-06-24 21:41] LABS: IDNOW Serial# 152EDE1D; Strep A Nucleic Acid Negative (Negative)
[2025-06-24 22:05] VITALS: BP 140/80; PULSE 85; RESP 18; TEMP 37.2; O2SAT 100
[2025-06-24 22:20] LABS: Appearance Urine Clear; Glucose Urine UA Negative (Negative); PH 6.5 (5.0-9.0); Specific Gravity - Urine 1.025 (1.005-1.025); UMIC TRIGGER UACC YES
[2025-06-24 22:31] LABS: UACC Culture Trigger YES
--- NOTE | 2025-06-24 22:49 | ED.GENADULT ---
HPI - General Adult General Chief complaint: General Medical Stated complaint: headache,fever,back pain Time Seen by Provider: 06/24/25 22:09 Source: patient Mode of arrival: ambulatory Limitations: no limitations History of Present Illness ED Provider: Dr. Neri [facility] narrative: 55-year-old female presented to the ER today for evaluation of right lower quadrant abdominal pain. Patient stated this has been going on for a week now. She is also having some right flank pain with headache and chills. And sore throat. Denies any diarrhea. Patient did have a bowel movement recently however it was a small bowel movement. History of cholecystectomy in the past. Related Data Previous Rx's ?Medication ?Instructions ?Recorded acetaminophen 650 mg 650 mg PO Q12H 30 days #60 tabs 08/05/24 tablet,extended release knqlmgdg-tccrilo-lhat-lutein tablet 1 tab PO DAILY #90 tabs 11/09/24 lisinopril 20 1 tab PO DAILY 90 days #90 tabs 01/16/25 mg-hydrochlorothiazide 12.5 mg tablet gabapentin 800 mg tablet 800 mg PO BID 30 days #60 tabs 05/16/25 tramadol 50 mg tablet 50 mg PO Q8H PRN pain 7 days #21 05/18/25 tabs ibuprofen 800 mg tablet 800 mg PO TID PRN Pain 30 days #90 05/30/25 tabs polyethylene glycol 3350 17 17 g PO BID #119 grams 06/25/25 gram/dose oral powder (Laxative PEG 3350) Allergies Allergy/AdvReac Type Severity Reaction Status Date / Time No Known Allergies Allergy Verified 06/24/25 21:08 Review of Systems Review of Systems: Pertinent review of systems as mentioned in [facility]. All other system otherwise negative. [facility] Past Medical History [facility] Narrative: Medical history as mentioned in HPI Medical History (Updated 06/25/25 @ 01:09 by Marlen Neri DO) Family history of breast cancer in first degree relative Numbness in left leg Sciatica Gallstones History of palpitations Lower back pain Surgical History Hx of cholecystectomy No pertinent past surgical history Family History Family History Father Stroke Hypertension Mother Hypertension Sister Breast cancer, Onset Age: 45 Family/Other Alcoholism Social History Social History Housing: Apartment Are you a primary youth care professional to a significant other at home: No Do you presently have visiting nurse or other home services: No Alcohol intake: current Alcohol intake frequency: a few times a month Patient Tobacco Use Status: Never used Tobacco Smoked in Last 30 Days: No e-Cigarette/Vaping Use: Never Used Second Hand Smoke Exposure: No Use of substances other than those prescribed or required for medical reasons: No Advance Directives: No Advance Directives Information Provided: No Do you have a plan to hurt others: No Plan service: No Current occupational status: unemployed Cognitive needs: No Hearing needs: No Vision needs: No Physical Exam ED Exam Exam: General: Pleasant, no distress, interacting appropriately Head: Normacephalic, atraumatic ENT: oral mucosa moist, neck supple, no tracheal deviation Gastrointestinal: Soft, non distended, right lower quadrant tenderness on palpation, no guarding Extremities: No limb pain or swelling, no calf tenderness Skin: Warm and dry Psychiatric: Appropriate mood and thoughts Vital Signs: Vital Signs - 24 hr 06/24/25 21:06 06/24/25 22:05 Temperature 99.7 F 98.9 F Pulse Rate 89 85 Respiratory Rate 16 18 Blood Pressure 156/73 H 140/80 H Pulse Oximetry 100 100 Oxygen Delivery Method Room Air Room Air BMI result Body Mass Index 25.2 Medications Administered Discontinued Medications Generic Name Dose Route Start Last Admin Trade Name Freq PRN Reason Stop Dose Admin Ceftriaxone Sodium 2 gm 06/24/25 22:35 06/24/25 23:35 Ceftriaxone Sodium 2 Gm Vial IVPUSH 06/24/25 22:36 2 gm ONCE ONE Administration Sodium Chloride 1,000 mls @ 999 mls/hr 06/24/25 22:45 06/25/25 00:01 Ns IV 06/24/25 23:45 Infused .Q1H1M ANTONIO Infusion Iohexol 85 ml 06/24/25 23:25 06/24/25 23:26 Iohexol 350 Mg/Ml 100 Ml Infus..Btl IV 06/24/25 23:26 85 ml ONCE ONE Administration Ketorolac Tromethamine 15 mg 06/24/25 22:33 06/24/25 22:59 Ketorolac Tromethamine 15 Mg/Ml Vial IVPUSH 06/24/25 22:34 15 mg ONCE ONE Administration Morphine Sulfate 4 mg 06/24/25 22:33 06/24/25 22:59 Morphine Sulfate 4 Mg/Ml Cartridge IVPUSH 06/24/25 22:34 4 mg ONCE ONE Administration Protocol Medical Decision Making Medical Decision Making [facility] Narrative: 55-year-old female presented hospital today for 1 week of right-sided flank pain and back pain and right lower quadrant pain We will evaluate for any signs of pyelonephritis or UTI. We will also obtain abdominal lab work for the patient does time CT abdomen and pelvis will be obtained. We will rule out for any signs of appendicitis for the patient. I do not think patient has cholecystitis as she has history of cholecystectomy in the past. Patient's lab work did show some leukocytosis 12.2, chemistries unremarkable, patient lipase long all is normal, UA did not show any signs of UTI. CT imaging is negative for any signs of appendicitis or any other intra-abdominal pathologies Patient noted to have moderate stool in the ascending and transverse colon. This is roughly around the area of her tenderness. Patient is feeling much better at this time. We will plan to discharge patient with a course of MiraLax to take. Return precautions provided. Patient agrees and understands to the clinic. Differential Diagnosis Differential Diagnoses: The differential diagnosis associated with the presentation includes Constipation, Colitis, gastroenteritis, UTI, pyelonephritis Lab Data [facility] Lab Attestation statement: I reviewed the patient's lab results. 06/24/25 21:18 06/24/25 21:18 Labs: Lab Results 06/24/25 06/24/25 06/24/25 Range/Units 21:18 22:12 22:57 WBC 12.2 H (4.8-10.8) X10*3/uL RBC 3.55 L (4.20-5.50) X10*6/uL Hgb 12.4 (12.0-16.0) g/dl Hct 34.0 L (37.0-47.0) % MCV 95.8 (80.0-98.0) fL MCH 34.9 H (27.0-33.0) pg MCHC 36.5 H (31.0-35.0) g/dl RDW 11.7 (11.0-16.0) % Plt Count 160 (160-400) X10*3/uL MPV 10.8 (9.4-12.3) fL Immature Gran % (Auto) 0.3 (0.0-0.4) % Neut % (Auto) 72.6 (45-73) % Lymph % (Auto) 21.5 (20-40) % [place] % (Auto) 4.8 (2-11) % Eos % (Auto) 0.6 (0-4) % Baso % (Auto) 0.2 (0-2) % Lymph # (Auto) 2.6 (1.2-4.9) X10*3/uL [place] # (Auto) 0.6 (0.1-1.2) X10*3/uL Eos # (Auto) 0.1 (0.0-0.4) X10*3/uL Baso # (Auto) 0.0 (0.0-0.2) X10*3/uL Abs Immat Gran (auto) 0.04 H (0.00-0.03) X10*3/uL Absolute Neuts (auto) 8.8 H (2.0-8.3) x10*3/uL Absolute Nucleated RBC 0.000 (0.0-0.012) X10*3/uL Nucleated RBC % (auto) 0.0 (0.0-0.2) /100WBC Sodium 140 (135-145) mmol/L Potassium 3.7 (3.3-5.1) mmol/L Chloride 107 (96-108) mmol/L Carbon Dioxide 23 (22-29) mmol/L Anion Gap 14 (12-20) BUN 14 (9-16) mg/dL Creatinine 0.75 (0.5-1.4) mg/dL Estim Creat Clear Calc 79.5 Estimated GFR > 60 Random Glucose 96 (60-115) mg/dL Lactic Acid 0.8 (0.5-2.0) mmol/L Calcium 9.0 D (8.4-10.2) mg/dL Magnesium 2.0 (1.6-2.6) mg/dL Total Bilirubin 1.3 H (0.0-1.0) mg/dL AST 23 (5-31) U/L ALT 14 (0-31) U/L Alkaline Phosphatase 98 (39-117) U/L Total Protein 7.2 (6.5-8.0) g/dL Albumin 4.4 (3.5-5.0) g/dL Lipase 47 (8-78) U/L Urine Color Yellow Urine Appearance Clear Urine pH 6.5 (5.0-9.0) Ur Specific [place] 1.025 (1.005-1.025) Urine Protein Negative (Neg-Trace) mg/dL Urine Glucose (UA) Negative (Negative) mg/dL Urine Ketones Trace (Negative) mg/dL Urine Blood Negative (Negative) Urine Nitrite Negative (Negative) Ur Leukocyte Esterase Small (1+) H (Negative) Urine RBC 0-2 (0-2) /HPF Urine WBC 0-5 (0-5) /HPF Ur Squamous Epith Cells 3-5 (0-2) /HPF Calcium Oxalate Crystal Present Urine Bacteria None Seen (None Seen) Hyaline Casts 0-2 (0-2) /LPF Influenza Type A (PCR) NEGATIVE (Negative) Influenza Type B (PCR) NEGATIVE (Negative) RSV RNA Qual (PCR) NEGATIVE (Negative) SARS-CoV-2 RNA (RT-PCR) NEGATIVE (Negative) S. pyogenes GrpA LAYLA Negative (Negative) Independent Interpretation I performed an independent interpretation of an: CT Scan Radiology Impression Discussion of test interpretation with radiology: I have reviewed the radiologist's reading. Discharge Plan Discharge Clinical Impression: Constipation Qualifiers: Constipation type: unspecified constipation type Qualified Code(s): K59.00 - Constipation, unspecified Patient Disposition: Home, Self-Care Instructions: Constipation (ED) Prescriptions: New polyethylene glycol 3350 [Laxative PEG 3350] 17 gram/dose powder 17 g PO BID Qty: 119 0RF No Action acetaminophen 650 mg tablet extended release 650 mg PO Q12H 30 Days Qty: 60 2RF lisinopril-hydrochlorothiazide 20-12.5 mg tablet 1 tab PO DAILY 90 Days Qty: 90 1RF tramadol 50 mg tablet 50 mg PO Q8H PRN (Reason: pain) 7 Days Qty: 21 1RF ibuprofen 800 mg tablet 800 mg PO TID PRN (Reason: Pain) 30 Days Qty: 90 1RF gabapentin 800 mg tablet 800 mg PO BID 30 Days Qty: 60 2RF wduxlbpi-ajfgnop-eevj-lutein Tablet 1 tab PO DAILY Qty: 90 4RF Print Language: Uzbek
[2025-06-24] MEDS: iohexoL 350 MG/ML 100 ML INFUS..BTL 85 ML IV (23:26)
[2025-06-24 23:38] LABS: Resp Syncy Virus RNA Qual PCR NEGATIVE (Negative); SARS COV2 PCR INHOUSE NEGATIVE (Negative)
[2025-06-25 01:20] VITALS: BP 113/73; PULSE 84; RESP 18; O2SAT 100
[2025-06-25 01:49] VITALS: BP 113/73; PULSE 84; RESP 18; TEMP 36.7; O2SAT 100
== END 2025-06-25 01:53 | disposition home or self-care (01) ==
PROVIDERS: Emergency Provider Student in an Organized Health Care Education/Training Program; PCP Physician Assistant
DX: K59.00 Constipation, unspecified (principal); R51.9 Headache, unspecified; R50.9 Fever, unspecified; M54.50 Low back pain, unspecified; R11.0 Nausea; R10.31 Right lower quadrant pain; J02.9 Acute pharyngitis, unspecified; Z03.818 Encounter for observation for suspected exposure to other biological agents ruled out; Z79.899 Other long term (current) drug therapy
CPT/HCPCS: 36415; 74177; 80053; 81001; 83605; 83690; 83735; 85025; 87040; 87086; 87637; 87651; 96361; 96374; 96375; 99285; J0696; J1885; J2270; Q9967

== ENCOUNTER → 2025-06-24 22:33 | Outpatient (BNV) | payer OTHER, SELFPAY | PROVIDERS: Emergency Provider Student in an Organized Health Care Education/Training Program; PCP Physician Assistant; Visit Provider Specialist | DX: R10.31 Right lower quadrant pain (principal) | CPT/HCPCS: 74177 ==

== ENCOUNTER 2025-07-10 09:34 | Outpatient (REF) | payer OTHER, SELFPAY ==
[2025-07-10 10:48] LABS: Hematocrit 37.2 % (37.0-47.0); Hemoglobin 12.7 g/dl (12.0-16.0); Mean Corpuscular HGB Conc 34.1 g/dl (31.0-35.0); Mean Corpuscular Hemoglobin 34.9 pg (27.0-33.0); Mean Corpuscular Volume 102.2 fL (80.0-98.0); NRBC Abs Auto 0.000 X10*3/uL (0.0-0.012); NRBC Pct Auto 0.0 /100WBC (0.0-0.2); Platelet Count 186 X10*3/uL (160-400); Red Blood Count 3.64 X10*6/uL (4.20-5.50); White Blood Count 7.7 X10*3/uL (4.8-10.8)
[2025-07-10 11:11] LABS: Alanine Aminotransferase 17 U/L (0-31); Albumin Level 4.5 g/dL (3.5-5.0); Alkaline Phosphatase 95 U/L (39-117); Anion Gap 15 (12-20); Aspartate Amino Transferase 28 U/L (5-31); Blood Urea Nitrogen 13 mg/dL (9-16); Calcium 9.0 mg/dL (8.4-10.2); Carbon Dioxide 22 mmol/L (22-29); Chloride 110 mmol/L (96-108); Estimated Glomerular Filt Rate > 60; Potassium 4.1 mmol/L (3.3-5.1); Sodium 143 mmol/L (135-145); Total Protein 7.2 g/dL (6.5-8.0)
--- OUTSIDE RECORDS SUMMARY | 2025-07-10 11:33 | XMS_ITS | Clinical Summary ---
Author Organization [employer] Address [address] [place] [address] Care Team Providers Care Infrastructure Analyst Name Role Phone Unavailable Primary Care Provider [...] of 2) 2020 COVID-19 Vaccine (4 - 2024- season) 2025 10/17/2022, 03/13/2021, 02/19/2021 Influenza Vaccine (#1) 2025 [...] patient's age to complete this topic Insurance [address] [place], [place] [address]
--- OUTSIDE RECORDS SUMMARY | 2025-07-10 11:33 | XMS_ITS | Clinical Summary ---
Author Organization [employer] Address [address] [place] [address] Care Team Providers Care Axle Bearing Polisher Name Role Phone Yung Phillips MD Primary [...] 11/29/2023 Social Influencers of Health Screening 11/29/2023 Depression Screening 10/26/2024 COVID-19 Vaccine (1 - 2023-2 5 season) 2025 Influenza Vaccine (#1) 2025 HIB Vaccines Aged [...] age to complete this topic Care Teams Axle Bearing Polisher Relationship Specialty Start Date End Date Yung Phillips MD [address] [place] [id number] PCP - General Internal Medicine 12/25/16
[2025-07-10 11:46] LABS: Microalbum/Creatinine Ratio Ur 10.4 ug/mg cr (<30)
== END 2025-07-10 09:35 | disposition home or self-care (01) ==
LOC: HO.LAB 09:34
PROVIDERS: PCP Physician Assistant; Visit Provider Physician Assistant
DX: I10 Essential (primary) hypertension (principal)
CPT/HCPCS: 36415; 80053; 82043; 82570; 85027